=== PATIENT | male | born 1950 | race Caucasian/White ===

== ENCOUNTER 2017-09-16 15:51 | Inpatient (IN) | payer MEDICARE ==
[2017-09-16 16:53] LABS: #Eosinphils 0.1 thou/uL (0.0-0.7); #Monocytes 0.3 thou/uL (0.11-0.59); #Neutrophils 2.6 thou/uL (1.40-6.50); %Basophils 0.6 % (0.0-1.0); %Eosinophils 1.9 % (0.0-10.0); %Monocytes 8.5 % (0.0-10.0); Hematocrit 41.3 % (42.0-52.0); Mean Platelet Volume 6.7 fL (7.4-10.4); Red Blood Cell (RBC) Count 4.39 mill/uL (4.70-6.10)
[2017-09-16 17:16] LABS: ALT (SGPT) 30 U/L (8-55); AST (SGOT) 30 U/L (5-34); Alkaline Phosphatase 65 U/L (40-150); Anion Gap 9 mmol/L (10-20); BUN (Urea Nitrogen) 9 mg/dL (8.4-25.7); Bilirubin, Total 0.7 mg/dL (0.2-1.2); Calc. Creatinine Clearance 0 mL/min (70-130); Calcium 8.6 mg/dL (7.8-10.44); Carbon Dioxide 36 mmol/L (23-31); Chloride 82 mmol/L (98-107); Estimated GFR-MDRD Greater than 90; Globulin 2.4 g/dL (2.4-3.5); Protein, Total 5.9 g/dL (5.8-8.1)
[2017-09-16] MEDS ORDERED: Acetaminophen 650 MG Suppository PR PRN (18:47)
[2017-09-16] MEDS ORDERED: Ondansetron ODT 4 MG TAB SL PRN (19:43)
[2017-09-16] MEDS ORDERED: Ondansetron HCl/PF 4 MG/2 ML Vial IVP PRN (19:43)
--- NOTE | 2017-09-16 20:06 | HP ---
PRIMARY CARE PHYSICIAN: Sahil Blake. CHIEF COMPLAINT: Generalized weakness and weight loss. HISTORY OF PRESENT ILLNESS: Mr. Mcpherson is a pleasant 67-year-old gentleman who was seen at [facility] on 09/16/2017. He was sent to the emergency room by his primary care physician for low sodium level. He reports having right leg compartment syndrome, for which he underwent surgery in 04/2015. He was advised to undergo rehabilitation following the surgery, but he could not due to financial reasons. He reports progressively worsening weakness of the entire body. He reports losing muscle mass. He r eports that whenever he eats something, he gets a feeling of "high", which he cannot describe further . He has limited his oral intake of solids. He reports drinking a good amounts of water. He report s losing 40 pounds over the last 4 months. He also reports frequent falls, and he fell twice few mon ths ago. He was reportedly seen at an emergency room a few days ago. He had a sodium level of 122. He was st arted on meclizine and Protonix and was discharged home. He reports that the meclizine did not help him. He stopped taking it 4 days ago. He also reports occasional word finding difficulty. He was seen by his primary care physician earlier today. His sodium level was found to be 125. He w as sent to the emergency room. He reports cough that is productive of clear sputum, chronic. He also reports diarrhea over the last week, but he has been constipated over the last 2 days. He also reports dizziness and sensation of his head getting flushed. REVIEW OF SYSTEMS: The following complete review of systems was negative, unless otherwise mentioned in the HPI or below: CONSTITUTIONAL: Weight loss or gain, sense of well-being, ability to conduct usual activities, exerc ise tolerance. SKIN/BREAST: Rash, itching, changes in hair growth or loss, nail changes, breast lumps, tenderness, swelling, nipple discharge. EYES: Vision, double vision, tearing, blind spots, pain. ENT/MOUTH: Headaches (location, time of onset, duration, precipitating factors), vertigo, lightheade dness, injury. Vision, double vision, tearing, blind spots, pain, nose bleeding, colds, obstruction, discharge, dental difficulties, gingival bleeding, dentures, neck stiffness, pain, tenderness, masses in thyroid or other areas. CARDIOVASCULAR: Precordial pain, substernal distress, palpitations, syncope, dyspnea on exertion, or thopnea, nocturnal paroxysmal dyspnea, edema, cyanosis, hypertension, heart murmurs, varicosities, ph lebitis, claudication. RESPIRATORY: Pain, shortness of breath, wheezing, stridor, cough, hemoptysis, fever or night sweats GASTROINTESTINAL: Poor appetite, dysphagia, indigestion, abdominal pain, heartburn, eructation, naus ea, vomiting, hematemesis, jaundice, constipation, or diarrhea, abnormal stools (sobia-colored, tarry, bloody, greasy, foul smelling), flatulence, hemorrhoids, recent changes in bowel habits. GENITOURINARY: Urgency, frequency, dysuria, nocturia, hematuria, polyuria, oliguria, unusual (or darius nge in) color of urine, stones, hesitancy, change in size of stream, dribbling, acute retention or in continence, libido, potency. MUSCULOSKELETAL: Pain, swelling, redness or heat of muscles or joints, limitation, of motion, muscul ar weakness, atrophy, cramps. NEUROLOGIC/PSYCHIATRIC: Convulsions, paralyses, tremor, incoordination, paresthesias, difficulties w ith memory of speech, sensory or motor disturbances, or muscular coordination (ataxia, tremor), emoti onal problems, anxiety, depression, previous psychiatric care, unusual perceptions, hallucinations. ALLERGY/IMMUNOLOGIC: Skin rash, anemia, bleeding tendency, polydipsia, polyuria, intolerance to heat or cold. PAST MEDICAL HISTORY: Significant for hypertension, coronary artery disease, gastroesophageal reflux disease and Infante's tumor. PAST SURGICAL HISTORY: Significant for surgery for compartment syndrome on the right lower extremity , neck surgery, right knee surgery, left arm surgery for shrapnel and right rotator cuff surgery. PSYCHIATRIC HISTORY: Significant for anxiety. SOCIAL HISTORY: The patient is an ex-smoker. He denies alcohol use or recreational drug use. FAMILY HISTORY: Significant for malignancy in his father. ALLERGIES: No known drug allergies. CURRENT MEDICATIONS: Include pantoprazole 40 mg daily, Grampian p.r.n., tizanidine 4 mg daily, Xanax 0. 5 mg as needed, alprazolam 2 mg as needed, lisinopril 5 mg daily, meclizine p.r.n. and carvedilol 6.2 5 mg b.i.d. PHYSICAL EXAMINATION: GENERAL: Mr. Mcpherson is awake and alert, not in acute distress. He appears tired. VITAL SIGNS: Blood pressure is 136/74, pulse is 72, he is breathing at rate of 18, and saturating 95 % on room air. He is afebrile. EYES: No scleral icterus. No conjunctival pallor. ENT: Moist mucosal membranes, no oropharyngeal erythema or exudates. NECK: Supple, nontender, normal range of movement. Trachea is midline. RESPIRATORY: Accessory muscles of breathing are not active. Chest wall movements are symmetric bila terally. LUNGS: Clear to auscultation without wheeze, rhonchi or crepitations. CARDIOVASCULAR: S1 and S2 are heard, regular. Peripheral pulses palpable. No carotid bruit, no per icardial rub. ABDOMEN: Soft, nontender, bowel sounds heard, no hepatomegaly, no splenomegaly. NEUROLOGIC: Cranial nerves II-XII are intact. Deep tendon reflexes are 2+. MUSCULOSKELETAL: Power is 5/5 in all 4 extremities. Normal range of movement at all major extremity joints. SKIN: Scar over the left side of his neck. No rashes or subcutaneous nodules. LYMPHATIC: No cervical lymphadenopathy. PSYCHIATRIC: Normal mood and normal affect, patient is oriented to person, place, and time. LABORATORY DATA: Mr. Mcpherson's labs and investigations were reviewed. He has leukopenia with 4000 w joaquin cells, normal hemoglobin, normal platelet count, decreased sodium of 123, normal potassium, elev ated carbon dioxide level of 36, normal creatinine, normal magnesium, normal calcium and normal liver profile. ASSESSMENT AND PLAN: Mr. Flynn is a pleasant 67-year-old gentleman, who was seen at [facility] on 09/16/2017. His problem list includes: 1. Hyponatremia: Etiology unclear. We will admit him to the hospital, provide normal saline and in itiate workup. We will check urine and serum osmolality, TSH, and fasting lipid profile. 2. Weight loss. He has not had any recent imaging. I will check CT scan of the chest, abdomen, and pelvis to rule out an occult malignancy. We will also consult dietitian to help improve his oral in take. 3. Frequent falls: We will have his mobility assessed. 4. Dizziness: We will check orthostatic vitals. 5. Coronary artery disease: Appears to be stable. 6. Hypertension: Monitor vital signs, titrate antihypertensives as needed. 7. Gastroesophageal reflux disease: Continue proton-pump inhibitor. Many thanks for allowing me to participate in your patient's care. Please feel free to contact me wi th any questions or concerns. LEVEL OF RISK: Moderate. LEVEL OF COMPLEXITY: Moderate.
[2017-09-16] MEDS: HYDROcodone/Acetaminophen 5/325 mg Tablet PO SCH (20:50)
[2017-09-16] MEDS: Sodium Chloride 0.9% 1,000 ML IV SCH (20:50)
--- NOTE | 2017-09-16 21:40 | CT ---
CT OF THE CHEST WITH IV CONTRAST CT OF THE ABDOMEN AND PELVIS WITH IV CONTRAST 09/16/17 INDICATION: Weight loss, rule out malignancy with history of hyponatremia. FINDINGS: No suspicious pulmonary nodes evident. There are a few shotty appearing lymph nodes within the medias tinum. The largest seen within the left paratracheal region measuring 1 cm. There are mild vascular c alcification involving the aortic arch and coronary arteries. No axillary or hilar lymphadenopathy is evident. No focal hepatic lesion is evident. The spleen, pancreas and adrenal glands are normal appearing. No focal renal lesion is evident. No free fluid or enlarged lymph nodes are evident. There are moderate calcifications involving the abdominal aorta. There is a normal appendix in the right lower quadrant. The prostate is mildly enlarged measuring 5.4 cm. The bladder, rectum, and perirectal soft tissues ar e unremarkable. No free fluid or enlarged lymph nodes were seen within the pelvis. There are fat cont aining inguinal hernias bilaterally. There are multiple subchondral cyst-like abnormality involving the left acetabulum. This is likely de generative in nature. There is mild scattered degenerative and osteoarthritic change. No suspicious o steolytic or osteoblastic lesion is identified. IMPRESSION: 1. No acute abnormality. 2. Shotty appearing lymph nodes within the mediastinum and nonspecific. The largest measures jus t up to 1 cm. 3. Chronic findings as above. POS: [facility]
[2017-09-16] MEDS ORDERED: Carvedilol 6.25 MG TAB PO SCH (22:30)
[2017-09-16] MEDS ORDERED: ALPRAZolam 0.5 MG TAB PO SCH (22:30)
[2017-09-16] MEDS: tiZANidine HCl 4 MG TAB PO PRN (22:45)
[2017-09-17] MEDS: Sodium Chloride 0.9% 1,000 ML IV SCH ×2 (05:22→20:31)
[2017-09-17 06:01] LABS: #Eosinphils 0.1 thou/uL (0.0-0.7); #Lymphocytes 1.8 thou/uL (1.20-3.40); #Monocytes 0.5 thou/uL (0.11-0.59); #Neutrophils 2.6 thou/uL (1.40-6.50); %Basophils 0.6 % (0.0-1.0); %Eosinophils 2.2 % (0.0-10.0); %Lymphocytes 34.9 % (21.0-51.0); %Monocytes 10.4 % (0.0-10.0); Hematocrit 39.4 % (42.0-52.0); Mean Platelet Volume 6.5 fL (7.4-10.4); Red Blood Cell (RBC) Count 4.15 mill/uL (4.70-6.10); White Blood Cell (WBC) Count 5.1 thou/uL (4.8-10.8)
[2017-09-17 06:13] LABS: Anion Gap 8 mmol/L (10-20); BUN (Urea Nitrogen) 7 mg/dL (8.4-25.7); Calc. Creatinine Clearance 154 mL/min (70-130); Calcium 8.8 mg/dL (7.8-10.44); Carbon Dioxide 37 mmol/L (23-31); Chloride 85 mmol/L (98-107); Cholesterol 165 mg/dl (< 200 Desired); Estimated GFR-MDRD Greater than 90; LDL Cholesterol, Calculated 111 mg/dL
[2017-09-17] MEDS ORDERED: Carvedilol 6.25 MG TAB PO SCH (09:00)
[2017-09-17] MEDS: Enoxaparin Sodium 40 MG/0.4 ML SYRINGE SC SCH (09:43)
[2017-09-17] MEDS: Acetaminophen 325 MG TAB PO PRN ×2 (09:52→16:51)
--- NOTE | 2017-09-17 11:33 | PDOC.PN ---
- Subjective Encounter Start Date: 09/17/17 Encounter Start Time: 08:20 Pt seen for followup re: hyponatremia. Reports still having feeling of "high" after eating, not eating well. No chest pain. - Objective Resuscitation Status: Resuscitation Status FULL:Full Resuscitation MAR Reviewed: Yes Vital Signs & Weight: Vital Signs (12 hours) Temp Pulse Resp BP BP Pulse Ox 09/17/17 09:43 133/77 09/17/17 08:05 98.3 F 78 18 133/77 94 L 09/17/17 04:00 96.9 F L 64 18 167/77 H 18 L Weight Weight 187 lb 11.2 oz I&O: 09/16/17 09/17/17 09/18/17 06:59 06:59 06:59 Intake Total 1120 Balance 1120 Result Diagrams: 09/17/17 05:30 09/17/17 05:30 EKG Reviewed by me: Yes (Tele: NSR) Phys Exam - Physical Examination Constitutional: NAD HEENT: PERRLA, moist MMs, sclera anicteric, oral pharynx no lesions Neck: no nodes, no JVD, supple, full ROM Respiratory: no wheezing, no rales, no rhonchi, clear to auscultation bilateral Cardiovascular: RRR, no rub Gastrointestinal: soft, non-tender, no distention Musculoskeletal: pulses present Neurological: moves all 4 limbs Lymphatic: no nodes Psychiatric: normal affect, A&O x 3 Skin: no rash, normal turgor, cap refill <2 seconds Dx/Plan (1) Hyponatremia Code(s): E87.1 - HYPO-OSMOLALITY AND HYPONATREMIA Status: Acute (2) Generalized weakness Code(s): R53.1 - WEAKNESS Status: Acute (3) HTN (hypertension) Code(s): I10 - ESSENTIAL (PRIMARY) HYPERTENSION Status: Chronic (4) CAD (coronary artery disease) Code(s): I25.10 - ATHSCL HEART DISEASE OF [place] CORONARY ARTERY W/O ANG PCTRS Status: Chronic (5) Weight loss Status: Chronic - Plan PT/OT, out of bed/ambulate, DVT proph w/lovenox * . Sodium improving. Consult neurology on Tuesday re: ? myopathy. Monitor vital signs, titrate antihypertensives as needed. Consult GI re: weight loss. Review of Systems - Review of Systems Constitutional: Weakness, Malaise. negative: Fever, Chills, Sweats Respiratory: negative: Cough, Dry, Shortness of Breath, Hemoptysis, SOB with Excertion, Pleuritic Pain, Sputum, Wheezing Cardiovascular: negative: Chest Pain, Palpitations, Orthopnea, Paroxysmal Noc. Dyspnea, Edema, Light Headedness Gastrointestinal: Nausea. negative: Vomiting, Abdominal Pain, Diarrhea, Constipation, Melena, Hematochezia Genitourinary: negative: Dysuria, Frequency, Incontinence, Hematuria, Retention - Medications/Allergies Allergies/Adverse Reactions: Allergies Allergy/AdvReac Type Severity Reaction Status Date / Time No Known Drug Allergies Allergy Verified 09/16/17 17:47 Medications: Current Medications Acetaminophen (Tylenol) 650 mg PO Q4H PRN PRN Reason: Headache/Fever or Pain Last Admin: 09/17/17 09:52 Dose: 650 mg Acetaminophen (Tylenol) 650 mg [place] Q4H PRN PRN Reason: Headache/Fever or Pain Hydrocodone Bitart/Acetaminophen ([place] 5/325) 1 tab PO HS [facility] Last Admin: 09/16/17 20:50 Dose: 1 tab Alprazolam (Xanax) 0.5 mg PO HS [facility] Carvedilol (Coreg) 6.25 mg PO BID [facility] Last Admin: 09/17/17 09:43 Dose: 6.25 mg Enoxaparin Sodium (Lovenox) 40 mg SC 0900 [facility] Last Admin: 09/17/17 09:43 Dose: 40 mg Sodium Chloride (Normal Saline 0.9%) 1,000 mls @ 100 mls/hr IV .Q10H [facility] Last Admin: 09/17/17 05:22 Dose: 1,000 mls Sodium Chloride (Flush - Normal Saline) 10 ml IVF Q12HR [facility] Last Admin: 09/17/17 09:44 Dose: Not Given Sodium Chloride (Flush - Normal Saline) 10 ml IVF PRN PRN PRN Reason: Saline Flush Tizanidine HCl (Zanaflex) 4 mg PO QIDPRN PRN PRN Reason: Muscle Spasm Last Admin: 09/16/17 22:45 Dose: 4 mg
[2017-09-17 15:40] LABS: Potassium, Urine Less than 10.0 mmol/L; Sodium, Urine Less than 20 mmol/L (Not Available)
--- NOTE | 2017-09-17 17:04 | CON ---
DATE OF CONSULTATION: 09/17/2017 HISTORY OF PRESENT ILLNESS: The patient is a 67-year-old white male who was admitted because of hypo natremia. He complains of weight loss. He says he has lost approximately 60 pounds over the last se veral months. He denies any abdominal pain, any nausea, vomiting, or any diarrhea. He does have occ asional constipation. He reports that when he eats he feels a high feeling like he is dizzy and has trouble describing the situation. He reports that he feels like he has been taking drugs. If he king s not eat, he does not have this sensation. He reports he is eating less because he does not want to have this sensation. He has had some falls and some difficulty with memory lately. He has also bee n on chronic narcotics for back pain which has been decreased from 3 a day to 2 a day. He reports he had a colonoscopy approximately a year ago at [facility] in [place] and was told it was normal. PAST MEDICAL HISTORY: Significant for hypertension, coronary artery disease, and reflux. PAST SURGICAL HISTORY: Includes knee replacement surgery, rotator cuff surgery, compartment syndrome . SOCIAL HISTORY: Does not smoke or drink. MEDICATIONS: Include Coreg 6.25 mg p.o. b.i.d., Zanaflex 4 mg p.o. q.i.d. p.r.n., Zestril 5 mg p.o. q. day, hydrocodone 1 p.o. twice a day, albuterol q. 4 hours p.r.n., alprazolam 0.5 mg p.o. at bedtim e. ALLERGIES: No known allergies. FAMILY HISTORY: Negative for GI or liver disease. REVIEW OF SYSTEMS: Constitutional: Positive for weight loss. Negative for fever or chills. Eyes: Positive for blurred vision after meals. ENT: Negative for earaches. Cardiovascular: Negative for chest pain. Negative for palpitations. Pulmonary: No shortness of br eath, cough, or wheezing. Gastrointestinal: See above. Genitourinary: No hematuria or dysuria. M usculoskeletal: Positive for muscle loss and generalized weakness. Negative for joint pain. Skin: No rashes. Neurologic: No numbness or seizure activity. PHYSICAL EXAMINATION: VITAL SIGNS: Temperature is 98.3, pulse 75, respirations 20, blood pressure 145/79. HEENT: Unremarkable. NECK: Supple. CHEST: Clear. CARDIOVASCULAR: Regular rate and rhythm. ABDOMEN: Soft, nontender, without organomegaly or masses. RECTAL: Deferred. EXTREMITIES: Normal. LABORATORY DATA: Shows an admission hemoglobin of 14.0, white blood count is 4.0. Chemistries are s ignificant for sodium of 123, chloride 82, CO2 36, glucose 137. TSH of 1.52. Chest and abdomen and pelvic CT showed no acute abnormalities, shotty lymph nodes within the mediastinum, which are nonspec ific, largest being up to 1 cm. ASSESSMENT: 1. Weight loss - the patient reports a "high" feeling when eating. This could be a manifestation of dumping syndrome. Other possibilities would include narcotic effect or possibly secondary to early dementia. 2. Hyponatremia. RECOMMENDATIONS: 1. EGD in a.m.
[2017-09-17] MEDS: Carvedilol 6.25 MG TAB PO SCH (17:31)
[2017-09-18] MEDS: HYDROcodone/Acetaminophen 5/325 mg Tablet PO SCH (01:55)
[2017-09-18] MEDS: ALPRAZolam 0.5 MG TAB PO SCH (01:56)
[2017-09-18] MEDS: Sodium Chloride 0.9% 1,000 ML IV SCH ×2 (02:04→06:45)
[2017-09-18] MEDS: Carvedilol 6.25 MG TAB PO SCH ×2 (06:37→16:35)
[2017-09-18] MEDS: Enoxaparin Sodium 40 MG/0.4 ML SYRINGE SC SCH (08:16)
--- NOTE | 2017-09-18 15:12 | PDOC.PN ---
- Subjective Encounter Start Date: 09/18/17 Encounter Start Time: 15:06 Mr. Lynn was seen today in follow-up of weight loss and weakness. He says he is getting persistently weaker. He now says he has trouble with his hands, and can hardly pull open the tops of the pudding. - Objective Resuscitation Status: Resuscitation Status FULL:Full Resuscitation MAR Reviewed: Yes Vital Signs & Weight: Vital Signs (12 hours) Temp Pulse Resp BP BP Pulse Ox 09/18/17 11:50 97.6 F 70 20 158/76 H 96 09/18/17 08:00 97.6 F 76 18 152/76 H 97 09/18/17 06:37 144/78 H 09/18/17 04:00 98.1 F 73 18 157/76 H 96 Weight Admit Weight 187 lb 11.2 oz Weight 187 lb 11.2 oz I&O: 09/17/17 09/18/17 09/19/17 06:59 06:59 06:59 Intake Total 1120 2988 Output Total 3475 Balance 1120 -487 Result Diagrams: 09/17/17 05:30 09/17/17 05:30 Additional Labs: Accuchecks 09/18/17 05:36 POC Glucose 100 Phys Exam - Physical Examination HEENT: PERRLA Respiratory: no wheezing, no rales, no rhonchi, clear to auscultation bilateral Cardiovascular: RRR, no significant murmur, no rub Gastrointestinal: soft, non-tender, positive bowel sounds Musculoskeletal: no edema Dx/Plan (1) Generalized weakness Code(s): R53.1 - WEAKNESS Status: Acute (2) Hyponatremia Code(s): E87.1 - HYPO-OSMOLALITY AND HYPONATREMIA Status: Acute (3) CAD (coronary artery disease) Code(s): I25.10 - ATHSCL HEART DISEASE OF [place] CORONARY ARTERY W/O ANG PCTRS Status: Chronic (4) HTN (hypertension) Code(s): I10 - ESSENTIAL (PRIMARY) HYPERTENSION Status: Chronic (5) Weight loss Status: Chronic - Plan * Generalized weakness, and feeling " high disoriented after eating"- ? etiology - EGD was negative * Agree with Neurology evaluation * Will also check a CK- to screen for myopathy, and check a sed rate * HTN- blood pressure is slightly elevated- will monitor * Hyponatremia- lab work is consistent with volume depletion- improving with hydration, and will continue to monitor.
[2017-09-18] MEDS ORDERED: Propofol 200 MG/20 ML VIAL ONE (15:38)
[2017-09-19] MEDS: HYDROcodone/Acetaminophen 5/325 mg Tablet PO SCH ×2 (02:02→20:25)
[2017-09-19] MEDS: ALPRAZolam 0.5 MG TAB PO SCH ×2 (02:03→20:25)
[2017-09-19] MEDS ORDERED: hydrALAZINE 20 MG/ML VIAL SLOW IVP SCH (04:30)
[2017-09-19 05:53] LABS: Anion Gap 13 mmol/L (10-20); BUN (Urea Nitrogen) 6 mg/dL (8.4-25.7); Calc. Creatinine Clearance 151 mL/min (70-130); Calcium 9.2 mg/dL (7.8-10.44); Carbon Dioxide 34 mmol/L (23-31); Chloride 85 mmol/L (98-107); Estimated GFR-MDRD Greater than 90
[2017-09-19] MEDS: Carvedilol 6.25 MG TAB PO SCH ×2 (08:51→18:34)
[2017-09-19] MEDS: Enoxaparin Sodium 40 MG/0.4 ML SYRINGE SC SCH (08:52)
--- NOTE | 2017-09-19 12:37 | PRG ---
DATE OF SERVICE: 09/19/2017 SUBJECTIVE: The patient reports having difficulty. He says he is seeing flashes and having more christiano rologic problems. I discussed his dumping syndrome diet with him. He says he is scheduled to see a neurologist later today. OBJECTIVE: VITAL SIGNS: Temperature of 97.8, pulse 92, respiratory rate 22, blood pressure 139/72. GENERAL: He is a somewhat anxious white male in no acute distress. CHEST: Clear. CARDIOVASCULAR: Regular rate and rhythm. ABDOMEN: Soft, nontender, without organomegaly or masses. LABORATORY DATA: Shows a sodium 128, chloride 85, CO2 34, BUN 6, creatinine 0.58. ASSESSMENT: 1. Possible dumping syndrome. 2. Other neurologic complaints. 3. Weight loss. 4. Hyponatremia. RECOMMENDATIONS: 1. Continue with antidumping diet. 2. Dietary consultation. 3. Agree with Neurology input.
[2017-09-19] MEDS: Labetalol HCl 100 MG/20 ML VIAL SLOW IVP PRN (16:12)
[2017-09-19] MEDS: Sodium Chloride 0.9% 1,000 ML IV SCH (16:30)
--- NOTE | 2017-09-19 16:40 | PDOC.PN ---
- Subjective Encounter Start Date: 09/19/17 Encounter Start Time: 16:37 Mr. Solorzano was seen today in follow-up of feeling " high" after eating. He also now informs me that he has not slept since Tuesday. He feels nervous, and shaky. His hands are trembling. He says his entire face feels flushed, and feels like his eyes are going to pop out of the sockets. - Objective Resuscitation Status: Resuscitation Status FULL:Full Resuscitation MAR Reviewed: Yes Vital Signs & Weight: Vital Signs (12 hours) Temp Pulse Resp BP BP BP BP 09/19/17 16:12 88 09/19/17 12:00 98.1 F 88 22 H 156/45 H 09/19/17 08:51 139/72 09/19/17 08:00 97.8 F 92 22 H 09/19/17 07:44 97.8 F 92 22 H 139/72 09/19/17 05:34 86 171/72 H 09/19/17 05:00 163/80 H 174/83 H 09/19/17 04:47 88 190/88 H BP Pulse Ox 09/19/17 16:12 09/19/17 12:00 96 09/19/17 08:51 09/19/17 08:00 09/19/17 07:44 96 09/19/17 05:34 09/19/17 05:00 171/81 H 09/19/17 04:47 Weight Admit Weight 187 lb 11.2 oz Weight 185 lb 6.4 oz I&O: 09/18/17 09/19/17 09/20/17 06:59 06:59 06:59 Intake Total 2988 2400 Output Total 3475 2750 Balance -487 -350 Result Diagrams: 09/17/17 05:30 09/19/17 05:03 Additional Labs: Accuchecks 09/19/17 09/19/17 11:48 05:07 POC Glucose 111 H 108 Phys Exam - Physical Examination HEENT: PERRLA Respiratory: no wheezing, no rales, no rhonchi, clear to auscultation bilateral Cardiovascular: RRR, no significant murmur, no rub Gastrointestinal: soft, non-tender, positive bowel sounds Musculoskeletal: no edema Dx/Plan (1) Generalized weakness Code(s): R53.1 - WEAKNESS Status: Acute (2) Hyponatremia Code(s): E87.1 - HYPO-OSMOLALITY AND HYPONATREMIA Status: Acute (3) CAD (coronary artery disease) Code(s): I25.10 - ATHSCL HEART DISEASE OF [place] CORONARY ARTERY W/O ANG PCTRS Status: Chronic (4) HTN (hypertension) Code(s): I10 - ESSENTIAL (PRIMARY) HYPERTENSION Status: Chronic (5) Weight loss Status: Chronic - Plan * Flushing feeling- ? etiology- he does appear very anxious, and he has a resting tremor. His blood pressure was also noted to be elevated- will screen him for Pheochromocytoma, and Carcinoid secreting tumor with 24 hour urine for metanephrines, 5-HIAA and [place] * The generalized weakness and muscle wasting- not sure if this is related- CK was only slightly elevated, and his ESR was normal- Await further recommendations from Neurology * HTN- will add PRN blood pressure medication, and consider Clonidine after 24hour urine collection * Insomnia- add Restoril .
[2017-09-19] MEDS ORDERED: Lorazepam 0.5 MG TAB PO PRN (16:45)
[2017-09-19] MEDS: Temazepam 15 MG CAP PO PRN (23:04)
--- NOTE | 2017-09-20 03:59 | CON ---
DATE OF CONSULTATION: 09/19/2017 REFERRING PROVIDER: Dr. Sarkis Hutchins. REASON FOR CONSULTATION: Possible myopathy. HISTORY OF PRESENT ILLNESS: Mr. Flynn is a pleasant 67-year-old male who has been consult ed for evaluation of possible myopathy. The patient reports that he had developed compartment syndro me in 04/2016. After the surgery, he had undergone exercise program at [facility] as he was not able to afford physical therapy evaluation due to financial issues. He states that he was recovering well and developing his strength and muscles back over the course of several months; however, raul ames in March of this year, he started noticing decline in his strength. He started noticing increasing muscle mass loss and weight loss. He also noticed increasing weakness in both upper and lower extre mities. He was noticing more weakness in lower extremities and upper extremities. He noted that he was having difficulty with walking and balance. He states that he was also having increasing mid and lower back pain. The pain was nonradiating. He also complained of noticing weakness in both hands. He states that prior to coming into the hospital, he was able to pick things up with his hand with h is two fingers; however, now he is not able to do that with his right hand. He is also not able to o ppose his thumb on his right side. He also complains of having noted increasing difficulty with swal lowing. He states that prior to coming to the hospital, he was able to swallow with some difficulty, but now he is having hard time swallowing. He was also able to cough, but now he is not able to do that. This all has been going on since he is being admitted to the hospital. He denies any headache or vision changes, diplopia, numbness or tingling on his face. He does complain of having numbness and tingling in both lower extremities intermittently in different places. When I asked specifically where he is having tingling sensation, he was not able to point to one location. PAST MEDICAL HISTORY: Significant for compartment syndrome, hypertension, coronary artery disease, G ERD. PAST SURGICAL HISTORY: Significant for surgery for compartment syndrome on the right lower extremity , neck surgery, right knee surgery, left arm surgery, right rotator cuff surgery, left shoulder surge ry. PSYCHIATRIC HISTORY: Significant for anxiety. SOCIAL HISTORY: He is an ex-smoker. He denies alcohol use or illicit drug use. FAMILY HISTORY: Significant for cancer in his father. CURRENT MEDICATIONS: Please review MAR. ALLERGIES: No known drug allergies. REVIEW OF SYSTEMS: As mentioned in the HPI, otherwise negative. PHYSICAL EXAMINATION: VITAL SIGNS: Blood pressure 169/88, pulse of 79, temperature of 98.0, respirations of 16, O2 sats of 95% on room air. GENERAL: Well-developed, well-nourished male in no apparent distress. RESPIRATORY: Clear to auscultation bilaterally. CARDIOVASCULAR: Regular rate and rhythm. NEUROLOGIC: Mental status: The patient is awake, alert, oriented x3. Speech and language: Fluent speech. Cranial nerves: Pupils are 3 mm and reactive. Visual valencia are intact. Extraocular muscl es are intact. No nystagmus is noted. Face is symmetric. Tongue and uvula are midline. Motor exam showed normal tone and bulk with a 5/5 strength in both upper extremities except shoulder abduction 4/5 bilaterally. Strength in both lower extremities showed a 3 to 4/5 hip flexion bilaterally. Knee flexion is 4/5, knee extension is 4/5. Hip abduction and hip adduction is 5/5. He has a right foot drop that is since his compartment syndrome. Sensory: Sensation appears intact. Deep tendon refle xes 2+ reflexes in both upper and lower extremities. Babinski: Plantar responses flexion bilaterall y. Coordination intact to [id number] tapping bilaterally. LABORATORY DATA: Reviewed, which included CBC, sed rate, CMP, CPK, TSH, lipid profile, magnesium and urine osmolality and urine sodium, urine potassium and urine creatinine, which is significant for he moglobin 13.1, hematocrit of 39.4. Sodium 128, CPK of 274. Otherwise, negative. IMPRESSION: 1. Generalized weakness. 2. Chronic neck and back pain. Mr. Flynn is a pleasant 67-year-old male presented with the 4 to 5-month history of gradua l weakness in both upper and lower extremities as well as increasing weight loss and muscle mass loss . At this time, I would recommend obtaining MRI, C-spine, T-spine, and L-spine without contrast for further evaluation. I will also obtain aldolase, myoglobin, and hepatitis panel. If the above studi es are normal, he will need an outpatient EMG with possible muscle biopsy. Thank you for your consultation.
[2017-09-20] MEDS: Sodium Chloride 0.9% 1,000 ML IV SCH ×2 (05:40→20:23)
[2017-09-20 06:25] LABS: Anion Gap 11 mmol/L (10-20); BUN (Urea Nitrogen) 6 mg/dL (8.4-25.7); Calc. Creatinine Clearance 163 mL/min (70-130); Calcium 8.8 mg/dL (7.8-10.44); Carbon Dioxide 35 mmol/L (23-31); Chloride 83 mmol/L (98-107); Estimated GFR-MDRD Greater than 90
--- NOTE | 2017-09-20 09:23 | MRI ---
MRI LUMBAR SPINE NONCONTRAST ENHANCED: Date: 09-20-17 History: 67-year-old with history of weakness for three months. FINDINGS: T12-L1: Mild facet hypertrophy seen. The central canal and neural foramen are patent. L1-2: There is some disc desiccation seen. Bilateral facet hypertrophy is seen. The central canal and neural foramen are patent. L2-3: Bilateral facet hypertrophy is seen. The central canal and neural foramen are patent. L3-4: Disc desiccation is seen. There is a subtle broad based disc bulge. Bilateral facet and ligamen caridad flavum hypertrophy is seen. Mild but not significant degree of central and lateral recess stenosi s is seen. L4-5: Disc desiccation is seen. There is broad based central disc protrusion. Bilateral facet and lig amentum flavum hypertrophy is seen. This results in mild to moderate central and lateral recess steno sis. Moderate bilateral neural foraminal narrowing is seen. L5-S1: Disc desiccation is seen. Bilateral facet hypertrophy is seen. There is a broad based disc bul ge. No significant degree of central stenosis is seen. There is moderate left and mild right sided ne ural foraminal narrowing. IMPRESSION: Broad based disc bulge at L2-3, L4-5 and L5-S1. No significant degree of central stenosis is seen. So me neural foraminal narrowing seen as described above. This is, however, not of critical degree. POS: [facility]
--- NOTE | 2017-09-20 09:25 | MRI ---
MRI THORACIC SPINE NONCONTRAST: Date: 09/20/17 HISTORY: 67-year-old male with bilateral upper extremity weakness. COMPARISON: None. FINDINGS: The thoracic vertebral body heights are maintained. There is a hemangioma (venous malformation of bon e) at the left posterior superior aspect of the T12 vertebral body. There are other smaller foci of T 1 hyperintensity, including T7 and T9 vertebral bodies, which probably also represent small hemangiom as. The bone marrow signal is diffusely heterogeneous. This is nonspecific, but this probably represe nts senescent marrow changes in this case. There is multilevel, predominantly mild discogenic degener ative changes throughout the thoracic spine. There is minimal dilation of the central canal of the sp inal cord from the mid T5 level to the mid T6 level, with a diameter of approximately 1.5 mm. Otherwi se, there is no intramedullary signal abnormality elsewhere. There is no bony central spinal canal st enosis at any level. However, the posterior epidural fat pad is large, surrounding the thecal sac by approximately 180-270 degrees, throughout much of the thoracic spine, beginning at approximately the T2 level, down to approximately the T9 level. The posterior epidural fat pad is thickest, and causes significant thecal sac stenosis, from approximately T3-4 to the T8 levels (moderate to severe thecal sac stenosis), but without indentation of the thoracic spinal cord. There is no high grade neural for aminal stenosis identified at any level. No major pathology of the perivertebral spaces identified. IMPRESSION: 1. Although there is no bony central spinal canal stenosis, there is moderate-severe thecal sac sten osis throughout much of the thoracic spine due to large posterior epidural fat pad. The clinical sign ificance of this is uncertain. 2. 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 3. Mild thoracic spondylosis. POS: [facility]
[2017-09-20] MEDS: Carvedilol 6.25 MG TAB PO SCH ×2 (09:29→16:20)
[2017-09-20] MEDS: Enoxaparin Sodium 40 MG/0.4 ML SYRINGE SC SCH (09:29)
--- NOTE | 2017-09-20 09:50 | MRI ---
MRI CERVICAL SPINE NONCONTRAST: Date: 09/20/17 HISTORY: 67-year-old male with bilateral upper extremity weakness. COMPARISON: None. FINDINGS: There is no Chiari I malformation. The cervical spine cord is normal in size and signal. There is no syringohydromyelia. The vertebral body heights are maintained. Alignment is normal. Normal lordosis i s maintained. There are no high grade degenerative facet changes at any level. There is minimal disc space narrowing at C4-5. No high grade disc space narrowing at any level. Vertebral body heights are maintained. The bone marrow signal is normal. C1-2: Essentially normal. C2-3: No high grade central stenosis or neural foraminal stenosis. C3-4: No high grade central stenosis or neural foraminal stenosis. C4-5: Mild ligamentum flavum thickening and minimal central disc-osteophyte complex exacerbate a spinal can al that is developmentally small in caliber due to congenitally short pedicles, resulting in moderate central spinal canal stenosis. No significant neural foraminal stenosis. C5-6: Ligamentum flavum thickening and minimal central and bilateral paracentral disc-osteophyte complex ex acerbate a spinal canal that is diffusely small in caliber due to congenitally short pedicles, result ing in moderate to severe central spinal canal stenosis. Mild right neural foraminal stenosis. Mild t o moderate left neural foraminal stenosis. C6-7: Mild ligamentum flavum thickening. Mild to moderate central spinal canal stenosis. No significant christiano ral foraminal stenosis. C7-T1: Essentially normal. IMPRESSION: 1. Minimal/mild cervical spondylosis. 2. Moderate to severe central spinal canal stenosis at C5-6 due to mild degenerative changes superim posed on a developmentally small caliber spinal canal. 3. Moderate central spinal canal stenosis at C4-5. 4. No high grade neural foraminal stenosis at any level. POS: [facility]
--- NOTE | 2017-09-20 12:55 | PRG ---
DATE OF SERVICE: 09/20/2017 SUBJECTIVE: The patient is really without change, has no GI complaints at present time. OBJECTIVE: VITAL SIGNS: Temperature 97.5, pulse 78, respiratory rate 16, blood pressure 136/75. CHEST: Clear. CARDIOVASCULAR: Regular rate and rhythm. ABDOMEN: Benign. The patient has been by Neurology and underwent thoracic, lumbar and cervical spine evaluation and du odenal biopsy was unremarkable. LABORATORY DATA: Shows CK of 274. Sodium today of 125. ASSESSMENT: 1. Generalized weakness and abnormal sensation with eating, of unknown etiology. 2. Hyponatremia. RECOMMENDATIONS: 1. Continue antidumping diet. 2. The patient okay to follow up with me as an outpatient. We will continue workup. 3. We will sign off.
--- NOTE | 2017-09-20 12:58 | PDOC.PN ---
- Subjective Encounter Start Date: 09/20/17 Encounter Start Time: 12:56 Mr. Gilman was seen today in follow-up of severe muscle weakness, and post prandial symptoms. He says he feels a bit better today. He slept at least 7 hours last night. He still feels very weak, and says he is loosing the ability to cough, and feels like his lungs are being restricted. - Objective Resuscitation Status: Resuscitation Status FULL:Full Resuscitation MAR Reviewed: Yes Vital Signs & Weight: Vital Signs (12 hours) Temp Pulse Resp BP BP BP Pulse Ox 09/20/17 11:16 97.5 F L 78 16 136/75 95 09/20/17 09:30 152/72 H 09/20/17 09:29 169/72 H 09/20/17 08:00 97.8 F 77 18 09/20/17 04:00 97.8 F 77 18 171/94 H 94 L Weight Admit Weight 187 lb 11.2 oz Weight 185 lb 6.4 oz I&O: 09/19/17 09/20/17 09/21/17 06:59 06:59 06:59 Intake Total 2400 Output Total 2750 Balance -350 Result Diagrams: 09/17/17 05:30 09/20/17 04:49 Additional Labs: Accuchecks 09/20/17 09/20/17 09/19/17 11:14 05:37 20:12 POC Glucose 99 103 107 09/19/17 15:52 POC Glucose 123 H Phys Exam - Physical Examination HEENT: PERRLA Respiratory: no wheezing, no rales, no rhonchi, clear to auscultation bilateral Cardiovascular: RRR, no significant murmur Gastrointestinal: soft, non-tender, positive bowel sounds Musculoskeletal: no edema Dx/Plan (1) Generalized weakness Code(s): R53.1 - WEAKNESS Status: Acute (2) Hyponatremia Code(s): E87.1 - HYPO-OSMOLALITY AND HYPONATREMIA Status: Acute (3) CAD (coronary artery disease) Code(s): I25.10 - ATHSCL HEART DISEASE OF [place] CORONARY ARTERY W/O ANG PCTRS Status: Chronic (4) HTN (hypertension) Code(s): I10 - ESSENTIAL (PRIMARY) HYPERTENSION Status: Chronic (5) Weight loss Status: Chronic - Plan * Generalized muscle weakness- MRI results noted, and likely the findings noted do not explain his symptoms * Further work-up as outlined by Dr. Santizo is still pending * Hyponatremia- his serum sodium level has stalled around 125- will consult Nephrology to help with diagnosis and management * HTN- blood pressure is slightly improved * Work-up for Pheo, and carcinoid are in progress. * Will consult PT/OT
[2017-09-20] MEDS: tiZANidine HCl 4 MG TAB PO PRN (19:40)
[2017-09-20] MEDS: HYDROcodone/Acetaminophen 5/325 mg Tablet PO SCH (20:09)
[2017-09-20] MEDS: Labetalol HCl 100 MG/20 ML VIAL SLOW IVP PRN (20:09)
[2017-09-20] MEDS: ALPRAZolam 0.5 MG TAB PO SCH (21:50)
--- NOTE | 2017-09-20 22:38 | CON ---
DATE OF CONSULTATION: 09/20/2017 CONSULTING PHYSICIAN: Alejo Molina M.D. REQUESTING PHYSICIAN: Dr. Zimmer REASON FOR CONSULTATION: Hyponatremia. IMPRESSION: 1. Hyponatremia. This is of unknown etiology, but going by the recent urine chemistry, one would th ink this to be more of hypovolemic hyponatremia, but this urine chemistry will be repeated to substan tiate or rule out this type of hyponatremia. 2. Generalized weakness with unstable gait which cannot coin the setting of hyponatremia. PLAN: 1. Urine chemistry especially urine sodium and urine osmolarity to be able to classify this hyponatr emia and initiate appropriate treatment. 2. Meanwhile awaiting this urine chemistry, will recommend continuing high protein based diet. 3. Continue gentle rehydration until the urine chemistry is evaluated. HISTORY OF PRESENT ILLNESS: History is that of a 67-year-old gentleman who presented here with compl aint of generalized weakness, weight loss, inability to walk and a feeling of hives especially when h e eats when he exerts himself. Patient claimed to have been losing lot of muscle mass and over the c ourse of 4 months claimed to have lost about 40 pounds. The patient is a remote tobacco user which q uit about the year 1999, presented here with a sodium level of 123, which improved to 125 and never s eems to go further than that. PAST MEDICAL HISTORY: Significant for hypertension, coronary artery disease, reflux disease . SOCIAL HISTORY: Ex-tobacco user, alcohol quit about 1989. Denies illicit drug use. FAMILY HISTORY: None significantly related to the presenting illness. ALLERGIES: No known drug allergies. MEDICATIONS: Reviewed and as documented on [employer]. REVIEW OF SYSTEMS: As documented in the body of the history. All the other systems were reviewed an d were found not to be significantly related to the presenting illness. LABORATORY INVESTIGATION: Significant for sodium of 125. PHYSICAL EXAMINATION: GENERAL: The patient was found not to be in any obvious distress, noted with the following vital sig ns. VITAL SIGNS: Afebrile with temperature 97.5, pulse 78, respiratory rate of 16, blood pressure 136/75 , O2 sat 95%. HEENT: Unremarkable with moist oral mucosa. Neck is supple. No conjunctival injection or icterus. CARDIOVASCULAR SYSTEM: First and second heart sounds were heard. RESPIRATORY SYSTEM: Clear to auscultation. DIGESTIVE SYSTEM: Revealed a benign abdomen with positive bowel sounds. EXTREMITIES: No peripheral edema. SKIN: No new gross rash. LYMPHATICS: No peripheral lymphadenopathy. SUMMARY: This is a 67-year-old gentleman who presented here with generalized weakness and progressiv e weight loss, noted with persistent hyponatremia. Thank you for this consultation. We will follow with you.
[2017-09-20] MEDS: Temazepam 15 MG CAP PO PRN (23:41)
[2017-09-20] MEDS: Acetaminophen 325 MG TAB PO PRN (23:43)
[2017-09-21 03:13] LABS: Myoglobin, Serum 235 ng/mL (28-72)
[2017-09-21 06:13] LABS: Anion Gap 9 mmol/L (10-20); BUN (Urea Nitrogen) 8 mg/dL (8.4-25.7); Calc. Creatinine Clearance 166 mL/min (70-130); Calcium 8.5 mg/dL (7.8-10.44); Carbon Dioxide 34 mmol/L (23-31); Chloride 83 mmol/L (98-107); Estimated GFR-MDRD Greater than 90
[2017-09-21] MEDS: Sodium Chloride 0.9% 1,000 ML IV SCH (08:30)
[2017-09-21] MEDS: Carvedilol 6.25 MG TAB PO SCH ×2 (08:52→16:42)
[2017-09-21] MEDS: Enoxaparin Sodium 40 MG/0.4 ML SYRINGE SC SCH (08:54)
[2017-09-21] MEDS: tiZANidine HCl 4 MG TAB PO PRN (09:00)
[2017-09-21] MEDS ORDERED: Conivaptan 20 MG in Premix Bag 1 BAG IVPB SCH ×4 (09:15→12:00)
--- NOTE | 2017-09-21 09:30 | PRG ---
DATE OF SERVICE: 09/21/2017 The patient was seen and examined today, seems to be more shaky today. PHYSICAL EXAMINATION: VITAL SIGNS: Afebrile with temperature 97.9, pulse 68, respiratory rate 16, O2 sat 95% with blood pr essure 184/95. HEENT: Unremarkable. CARDIOVASCULAR: First and second heart sounds were heard. RESPIRATORY: Clear to auscultation. DIGESTIVE SYSTEM: Abdomen with positive bowel sounds. EXTREMITIES: No peripheral edema. SKIN: No new gross rash. LYMPHATICS: No peripheral lymphadenopathy. LABORATORY: Serum sodium of 122. Urine chemistry revealed urine sodium of 75 and urine osmolarity o f 350. IMPRESSION: 1. Hyponatremia. 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 2. Weight loss with hyponatremia, still very concerning for occult malignancy. PLAN: 1. Discontinue IV fluid. 2. Initiate Vaprisol. 3. Serial sodium check every 6 hours and make adjustments accordingly. 4. Continue with high protein diet. 5. Further management to be dependent on the clinical course.
--- NOTE | 2017-09-21 13:48 | PRG ---
DATE OF SERVICE: 09/21/2017 SUBJECTIVE: The patient is feeling somewhat better. He slept last night. He is eating well with mi nimal symptoms. OBJECTIVE: VITAL SIGNS: Temperature is 98.2, pulse 67, respiratory rate 16 and blood pressure 155/80. CHEST: Clear. CARDIOVASCULAR: Regular rate and rhythm. ABDOMEN: Benign. LABORATORY DATA: Shows a sodium of 122, chloride 83 and CO2 of 34. ASSESSMENT: 1. Hyponatremia. 2. Possible dumping syndrome. 3. Weight loss of unknown etiology. RECOMMENDATIONS: 1. Continue to correct the electrolytes. 2. The patient can follow up with me in the outpatient setting to follow weight and to follow his sy mptoms and follow his adherence with antidumping diet. 3. We will sign off.
--- NOTE | 2017-09-21 15:55 | PDOC.PN ---
- Subjective Encounter Start Date: 09/21/17 Encounter Start Time: 15:54 Mr. Prieto was seen today in follow-up of generalized weakness. He does not have any new complaints other than he feels drowsy. - Objective Resuscitation Status: Resuscitation Status FULL:Full Resuscitation MAR Reviewed: Yes Vital Signs & Weight: Vital Signs (12 hours) Temp Pulse Resp BP BP BP BP 09/21/17 11:40 98.2 F 67 16 155/80 H 09/21/17 08:52 184/95 H 09/21/17 08:00 97.9 F 68 16 09/21/17 07:33 97.9 F 68 16 184/78 H 09/21/17 06:33 155/88 H 160/87 H 09/21/17 05:00 97.8 F 74 20 BP Pulse Ox 09/21/17 11:40 94 L 09/21/17 08:52 09/21/17 08:00 95 09/21/17 07:33 95 09/21/17 06:33 172/88 H 09/21/17 05:00 171/83 H 95 Weight Admit Weight 187 lb 11.2 oz Weight 185 lb 6.4 oz I&O: 09/20/17 09/21/17 09/22/17 06:59 06:59 06:59 Intake Total 500 960 Output Total 1025 Balance -525 960 Result Diagrams: 09/17/17 05:30 09/21/17 15:17 Additional Labs: Accuchecks 09/21/17 09/21/17 09/20/17 11:09 05:04 19:52 POC Glucose 110 106 109 09/20/17 16:37 POC Glucose 100 Phys Exam - Physical Examination HEENT: PERRLA Respiratory: no wheezing, no rales, no rhonchi, clear to auscultation bilateral Cardiovascular: RRR, no significant murmur Gastrointestinal: soft, non-tender, positive bowel sounds Musculoskeletal: no edema Dx/Plan (1) Generalized weakness Code(s): R53.1 - WEAKNESS Status: Acute (2) Hyponatremia Code(s): E87.1 - HYPO-OSMOLALITY AND HYPONATREMIA Status: Acute (3) CAD (coronary artery disease) Code(s): I25.10 - ATHSCL HEART DISEASE OF [place] CORONARY ARTERY W/O ANG PCTRS Status: Chronic (4) HTN (hypertension) Code(s): I10 - ESSENTIAL (PRIMARY) HYPERTENSION Status: Chronic (5) Weight loss Status: Chronic - Plan * Generalized weakness- ? etiology- related to hyponatremia?- discussed with Dr. Santizo- awaiting the results of the remaining lab tests. * Elevated CK and Myoglobin- ? significance * Hyponatremia- Nephrology input appreciated- hyponatremia behaving like SIADH- patient is undergoing a trial of Conivaptan * HTN- blood pressure is elevated- will add Amlodipine * Screening for Pheo and Carcinoid is pending, and may need to be followed up as outpatient * Continue PT/OT * Weight loss- ? etiology
[2017-09-21] MEDS: ALPRAZolam 0.5 MG TAB PO SCH (20:25)
[2017-09-21] MEDS: Temazepam 15 MG CAP PO PRN (23:08)
[2017-09-21] MEDS: HYDROcodone/Acetaminophen 5/325 mg Tablet PO SCH (23:11)
[2017-09-22] MEDS: Labetalol HCl 100 MG/20 ML VIAL SLOW IVP PRN (03:51)
[2017-09-22] MEDS: Amlodipine 5 MG TAB PO SCH (09:25)
[2017-09-22] MEDS: Carvedilol 6.25 MG TAB PO SCH ×2 (09:25→21:00)
[2017-09-22] MEDS: Enoxaparin Sodium 40 MG/0.4 ML SYRINGE SC SCH (09:27)
[2017-09-22] MEDS: Acetaminophen 325 MG TAB PO PRN ×2 (09:31→14:22)
--- NOTE | 2017-09-22 11:15 | PQF ---
CLINICAL DOCUMENTATION IMPROVEMENT CLARIFICATION FORM: ICD-10 Updated PLEASE DO AN ADDENDUM TO THE PROGRESS NOTE WITH ANY DOCUMENTATION UPDATES OR ADDITIONS AND CARRY THROUGH TO DC SUMMARY. THANK YOU. Date: 09/22/17 ATTN: DR. CEVALLOS Please exercise your independent, professional judgment in responding to the clarification form. Clinical indicators are provided on the bottom of this form for your review Please check appropriate box(s): [ ] Protein Calorie Malnutrition: [ ] Mild [ ] Moderate [ ] Severe [ ] Other Malnutrition (please specify) __ [ X] Underweight without malnutrition [ ] Cachexia [ ] Other diagnosis [ ] Unable to determine In addition, please specify: Present on Admission (POA): [ X] Yes [ ] No [ ] Unable to determine CLINICAL INDICATORS - SIGNS / SYMPTOMS / LABS PROGRESS NOTE 09/18: "MR. CHILD WAS SEEN TODAY IN FOLLOW-UP OF WEIGHT LOSS AND WEAKNESS. HE SAYS HE IS GETTING PERSISTENTLY WEAKER. HE NOW SAYS HE HAS TROUBLE WITH HIS HANDS, AND CAN HARDLY PULL OPEN THE TOPS OF THE PUDDING." DIETARY NOTE 09/17: "PATIENT REPORTS WEIGHING 252 LBS 3 MONTHS AGO, 'HAS LOST ALL HIS MUSCLE.' " "PER DOCUMENTATION, PATIENT REPORTED A 40 LBS WEIGHT LOSS IN 4 MONTHS TO MD AND A 60 LBS WEIGHT LOSS IN 6 MONTHS TO RN." BMI 23.8 RISKS: WEIGHT LOSS OF UNKNOWN ETIOLOGY (PER PROGRESS NOTE 09/21) POSSIBLE DUMPING SYNDROME (PER PROGRESS NOTE 09/21) HYPONATREMIA TREATMENT: DIETARY CONSULT GI CONSULT NUTRITIONAL SUPPLEMENTS HIGH PROTEIN DIET (This form is maintained as a part of the permanent medical record) 2014 [employer]. All Rights Reserved [email or web address] Office: [phone] [facility]
--- NOTE | 2017-09-22 11:23 | PDOC.PN ---
- Subjective Encounter Start Date: 09/22/17 Encounter Start Time: 11:20 Mr. Mcpherson was seen today in follow-up of generalized weakness and hyponatremia. He is complaing of feeling very weak today, and off balance. He also began having a headache after I arrived in his room. - Objective Resuscitation Status: Resuscitation Status FULL:Full Resuscitation MAR Reviewed: Yes Vital Signs & Weight: Vital Signs (12 hours) Temp Pulse Resp BP BP BP Pulse Ox 09/22/17 09:25 92 124/78 09/22/17 08:34 98.2 F 72 18 159/83 H 95 09/22/17 08:00 98.2 F 92 20 124/78 94 L 09/22/17 06:00 156/81 H 09/22/17 04:00 97.3 F L 75 20 156/81 H 95 09/22/17 03:51 91 190/80 H 09/22/17 03:36 91 190/80 H 09/22/17 00:00 98.0 F 84 20 186/74 H 91 L Weight Admit Weight 187 lb 11.2 oz Weight 185 lb 6.4 oz I&O: 09/21/17 09/22/17 09/23/17 06:59 06:59 06:59 Intake Total 500 2253 Output Total 1025 6150 Balance -525 -2709 Result Diagrams: 09/17/17 05:30 09/22/17 05:11 Additional Labs: Accuchecks 09/22/17 09/21/17 09/21/17 05:03 19:48 16:51 POC Glucose 98 147 H 99 09/21/17 11:09 POC Glucose 110 Phys Exam - Physical Examination HEENT: PERRLA Respiratory: no wheezing, no rales, no rhonchi, clear to auscultation bilateral Cardiovascular: RRR, no significant murmur Gastrointestinal: soft, non-tender, positive bowel sounds Musculoskeletal: no edema Dx/Plan (1) Generalized weakness Code(s): R53.1 - WEAKNESS Status: Acute (2) Hyponatremia Code(s): E87.1 - HYPO-OSMOLALITY AND HYPONATREMIA Status: Acute (3) CAD (coronary artery disease) Code(s): I25.10 - ATHSCL HEART DISEASE OF [place] CORONARY ARTERY W/O ANG PCTRS Status: Chronic (4) HTN (hypertension) Code(s): I10 - ESSENTIAL (PRIMARY) HYPERTENSION Status: Chronic (5) Weight loss Status: Chronic - Plan * Generalized weakness- ? etiology- continue PT/OT * Hyponatremia- patient's serum sodium level is better after Conivaptan * HTN- blood pressure was much better this morning * Will re-assess patient in the morning, and will need to begin discharge planning. If he is able to manage at home, ambulating ect. then he will be discharged and have Outpatient Neurology follow-up for EMG, and muscle biopsy. If he is too weak than will consider transfer to [facility] for Inpatient Neurology evaluation as discussed with Dr. Santizo .
[2017-09-22 13:47] VITALS: BMI 23.8
[2017-09-22 14:22] LABS: Hep B Surface AG-Rflx Sendout Negative (Negative); Hepatitis B Core Total Negative (Negative); Hepatitis B Surface AB-Sendout Reactive (.); Hepatitis B little e Antibody Negative (Negative); Hepatitis B little e Antigen Negative (Negative)
[2017-09-22] MEDS: ALPRAZolam 0.5 MG TAB PO SCH (21:00)
--- NOTE | 2017-09-22 21:14 | PRG ---
DATE OF SERVICE: 09/22/2017 LABORATORY INVESTIGATION: Showed a sodium that has gone up to 131. IMPRESSION: 1. Hyponatremia in the context of syndrome of inappropriate antidiuretic hormone responding to _ . 2. Weight loss, query cause. PLAN: 1. The patient to continue with current medications. 2. Fluid restriction. 3. regular diet recommended. 4. Further management will be dependent on the clinical course. It is somewhat concerning the weigh t loss and hyponatremia for occult malignancy.
[2017-09-22] MEDS: HYDROcodone/Acetaminophen 5/325 mg Tablet PO SCH (22:40)
[2017-09-22] MEDS: Temazepam 15 MG CAP PO PRN (23:30)
[2017-09-23 04:18] LABS: Aldolase 7.3 U/L (3.3-10.3)
[2017-09-23] MEDS: Carvedilol 6.25 MG TAB PO SCH ×2 (08:47→16:13)
[2017-09-23] MEDS: Amlodipine 5 MG TAB PO SCH (08:47)
[2017-09-23] MEDS: Enoxaparin Sodium 40 MG/0.4 ML SYRINGE SC SCH (08:48)
[2017-09-23] MEDS ORDERED: Conivaptan 20 MG in Premix Bag 1 BAG IVPB SCH (09:45)
--- NOTE | 2017-09-23 12:00 | PDOC.PN ---
- Subjective Encounter Start Date: 09/23/17 Encounter Start Time: 11:58 Mr. Chapman was seen today in follow-up of generalized weakness. He says he feels " blah", no new complaints. Still weak. - Objective Resuscitation Status: Resuscitation Status FULL:Full Resuscitation MAR Reviewed: Yes Vital Signs & Weight: Vital Signs (12 hours) Temp Pulse Resp BP BP BP Pulse Ox 09/23/17 08:54 97.9 F 72 18 166/84 H 94 L 09/23/17 08:47 78 166/84 H 09/23/17 08:00 98.2 F 78 18 09/23/17 04:00 98.2 F 78 18 163/94 H 94 L 09/23/17 02:18 75 174/78 H 09/23/17 00:00 98.3 F 76 18 183/79 H 93 L Weight Admit Weight 187 lb 11.2 oz Weight 185 lb 6.4 oz I&O: 09/22/17 09/23/17 09/24/17 06:59 06:59 06:59 Intake Total 2253 1480 Output Total 6150 1300 Balance -3897 180 Result Diagrams: 09/17/17 05:30 09/22/17 22:32 Additional Labs: Accuchecks 09/23/17 09/22/17 09/22/17 05:31 20:32 16:38 POC Glucose 86 89 114 H Phys Exam - Physical Examination HEENT: PERRLA Respiratory: no wheezing, no rales, no rhonchi, clear to auscultation bilateral Cardiovascular: RRR, no significant murmur Gastrointestinal: soft, non-tender, positive bowel sounds Musculoskeletal: no edema Dx/Plan (1) Generalized weakness Code(s): R53.1 - WEAKNESS Status: Acute (2) Hyponatremia Code(s): E87.1 - HYPO-OSMOLALITY AND HYPONATREMIA Status: Acute (3) CAD (coronary artery disease) Code(s): I25.10 - ATHSCL HEART DISEASE OF [place] CORONARY ARTERY W/O ANG PCTRS Status: Chronic (4) HTN (hypertension) Code(s): I10 - ESSENTIAL (PRIMARY) HYPERTENSION Status: Chronic (5) Weight loss Status: Chronic - Plan * Generalized weakness- ? etiology, possibly related to hyponatremia * His serum sodium dropped again, and he is being given another dose of Conivaptan- He had a CT of the Chest Abdomen /pelvis which was essentially negative- there is no obvious sign of malignancy so far * He has not mentioned the adbominal symptoms in the past few days- Urine for Metanephrines, and 5-HIAA are pending * HTN- blood pressure is labile. * Going forward would likely discharge home after his serum sodium is corrected and stable, and then complete work-up as outpatient
[2017-09-23] MEDS: Acetaminophen 325 MG TAB PO PRN ×2 (15:50→20:50)
--- NOTE | 2017-09-23 16:59 | PRG ---
DATE OF SERVICE: 09/23/2017 SUBJECTIVE: The patient was seen and examined. PHYSICAL EXAMINATION: VITAL SIGNS: Noted with following vital signs: Afebrile with temperature 97.9, pulse 72, respirator y rate 20, blood pressure 162/84, O2 sat 96%. HEENT: Unremarkable with moist oral mucosa. Neck was supple. No conjunctival injection or icterus. CARDIOVASCULAR: First and second heart sounds were heard. RESPIRATORY: Clear to auscultation. DIGESTIVE: Revealed a benign abdomen with positive bowel sounds. EXTREMITIES: No peripheral edema. SKIN: No new gross rash. LYMPHATICS: No peripheral lymphadenopathy. LABORATORY INVESTIGATION: Showed no chemistry today. IMPRESSION: 1. Hyponatremia in the context of problem #2. 2. Syndrome of inappropriate antidiuretic hormone 3. Generalized weakness, query cause. PLAN: 1. The patient on Vaprisol. We will continue with fluid restriction and high protein animal meat in take. 2. Close outpatient nephrology followup status post discharge strongly recommended.
[2017-09-23 17:17] LABS: Anion Gap 10 mmol/L (10-20); BUN (Urea Nitrogen) 19 mg/dL (8.4-25.7); Calc. Creatinine Clearance 139 mL/min (70-130); Calcium 9.1 mg/dL (7.8-10.44); Carbon Dioxide 33 mmol/L (23-31); Chloride 86 mmol/L (98-107); Estimated GFR-MDRD Greater than 90
[2017-09-23] MEDS: ALPRAZolam 0.5 MG TAB PO SCH (20:51)
[2017-09-23] MEDS: HYDROcodone/Acetaminophen 5/325 mg Tablet PO SCH (22:19)
[2017-09-23] MEDS: Temazepam 15 MG CAP PO PRN (23:05)
[2017-09-24 06:48] LABS: BUN (Urea Nitrogen) 13 mg/dL (8.4-25.7); Calc. Creatinine Clearance 144 mL/min (70-130); Calcium 9.1 mg/dL (7.8-10.44); Estimated GFR-MDRD Greater than 90
[2017-09-24 06:58] LABS: Anion Gap 14 mmol/L (10-20); Carbon Dioxide 35 mmol/L (23-31); Chloride 87 mmol/L (98-107)
[2017-09-24] MEDS: Carvedilol 6.25 MG TAB PO SCH ×2 (07:58→16:32)
[2017-09-24] MEDS: Enoxaparin Sodium 40 MG/0.4 ML SYRINGE SC SCH (07:59)
[2017-09-24] MEDS: Amlodipine 5 MG TAB PO SCH (07:59)
--- NOTE | 2017-09-24 14:27 | PDOC.PN ---
- Subjective Encounter Start Date: 09/24/17 Encounter Start Time: 09:15 states that he feels like the room is spinnig off and on. complains of the significant weight loss. states he has had issues preforming a strong cough as well as persitent and progressive problems with swallowing - Objective Resuscitation Status: Resuscitation Status FULL:Full Resuscitation Vital Signs & Weight: Vital Signs (12 hours) Temp Pulse Resp BP BP BP Pulse Ox 09/24/17 08:00 97.9 F 87 18 09/24/17 07:59 87 134/65 09/24/17 07:58 134/65 09/24/17 07:22 97.9 F 87 18 134/65 92 L 09/24/17 04:00 97.7 F 76 16 167/77 H 94 L Weight Admit Weight 187 lb 11.2 oz Weight 185 lb 6.4 oz I&O: 09/23/17 09/24/17 09/25/17 06:59 06:59 06:59 Intake Total 1480 2140 200 Output Total 1300 1210 Balance 180 930 200 Result Diagrams: 09/17/17 05:30 09/24/17 04:50 Additional Labs: Accuchecks 09/24/17 09/23/17 09/23/17 11:21 20:18 16:21 POC Glucose 120 H 107 108 Phys Exam - Physical Examination HEENT: PERRLA, moist MMs, sclera anicteric Neck: no nodes, no JVD, supple Respiratory: no wheezing, clear to auscultation bilateral Cardiovascular: RRR, no significant murmur, no rub Gastrointestinal: soft, non-tender, no distention Musculoskeletal: no edema, pulses present Neurological: non-focal, moves all 4 limbs Psychiatric: normal affect, A&O x 3 Skin: no rash, normal turgor, cap refill <2 seconds Dx/Plan (1) Generalized weakness Code(s): R53.1 - WEAKNESS Status: Acute (2) Hyponatremia Code(s): E87.1 - HYPO-OSMOLALITY AND HYPONATREMIA Status: Acute (3) CAD (coronary artery disease) Code(s): I25.10 - ATHSCL HEART DISEASE OF [place] CORONARY ARTERY W/O ANG PCTRS Status: Chronic (4) HTN (hypertension) Code(s): I10 - ESSENTIAL (PRIMARY) HYPERTENSION Status: Chronic (5) Weight loss Status: Chronic - Plan cont current plan of care * . sodium improved nephro followings monitor Na levels in AM will get a CT of the neck to rule out malignancy of his significant weight loss and current symptoms
--- NOTE | 2017-09-24 15:45 | PRG ---
DATE OF SERVICE: 09/24/2017 SUBJECTIVE: The patient was seen and examined, seems to be doing better renal guzman. PHYSICAL EXAMINATION: VITAL SIGNS: Noted with the following vital signs. Afebrile with temperature 97.9, pulse 87, respir atory rate 18, O2 sat of 92% with blood pressure 134/65. HEENT: Unremarkable with moist oral mucosa. Neck was supple. No conjunctival injection or icterus. CARDIOVASCULAR: First and second heart sounds were heard. EXTREMITIES: No peripheral edema. NEUROLOGIC: Alert and oriented. No lateralizing sign. LABORATORY: Laboratory investigation showed sodium of 132. IMPRESSION: 1. Hyponatremia in the context of problem #2. 2. Syndrome of inappropriate antidiuretic hormone. PLAN: 1. We will continue with high protein diet and fluid restriction. 2. Further management to be dependent on the clinical course.
--- NOTE | 2017-09-24 15:51 | CT ---
NECK CT WITH CONTRAST 09/24/17 INDICATION: Dysphagia, weight loss. FINDINGS: There is distention of the oropharyngeal airway. Epiglottis is normal in caliber and the pre-epiglott ic space is maintained. Each piriform sinus is patent. No mass at the level of the glottis. Subglotti c tracheal air column is patent. The thyroid gland is unremarkable. No intrinsic pathology of the sub mandibular glands or left parotid gland. Right parotid gland is not visualized. No mass at the nasoph arynx. There is enlargement of right jugular chain lymph nodes, measuring up to 14 mm in diameter. IMPRESSION: 1. Nonspecific mild enlargement of the right jugular chain lymph node measuring up to 14 mm. Thi s is nonspecific. Finding could be reactive versus neoplastic. Recommend clinical correlation as well as imaging followup. 2. No intrinsic mass effect of the imaged aerodigestive tract. POS: [facility]
[2017-09-24] MEDS: Acetaminophen 325 MG TAB PO PRN (16:31)
[2017-09-24] MEDS: ALPRAZolam 0.5 MG TAB PO SCH (21:15)
[2017-09-24] MEDS: HYDROcodone/Acetaminophen 5/325 mg Tablet PO SCH (22:17)
[2017-09-24] MEDS: Temazepam 15 MG CAP PO PRN (23:09)
[2017-09-25 06:05] LABS: BUN (Urea Nitrogen) 12 mg/dL (8.4-25.7); Calc. Creatinine Clearance 149 mL/min (70-130); Calcium 8.9 mg/dL (7.8-10.44); Estimated GFR-MDRD Greater than 90
[2017-09-25 06:18] LABS: Anion Gap 11 mmol/L (10-20); Carbon Dioxide 37 mmol/L (23-31); Chloride 87 mmol/L (98-107)
[2017-09-25] MEDS: Enoxaparin Sodium 40 MG/0.4 ML SYRINGE SC SCH (08:35)
[2017-09-25] MEDS: Carvedilol 6.25 MG TAB PO SCH ×2 (08:37→17:13)
[2017-09-25] MEDS: Amlodipine 5 MG TAB PO SCH (08:37)
--- NOTE | 2017-09-25 10:50 | PDOC.PN ---
- Subjective Encounter Start Date: 09/25/17 Encounter Start Time: 09:50 states he feels extremely weak and can barely walk to the door patient is still wondering why he loss "60lbs of muscle" in approx 6 months - Objective Resuscitation Status: Resuscitation Status FULL:Full Resuscitation Vital Signs & Weight: Vital Signs (12 hours) Temp Pulse Resp BP BP Pulse Ox 09/25/17 08:37 82 159/78 H 09/25/17 08:00 98.2 F 82 20 159/78 H 92 L 09/25/17 04:00 97.8 F 82 16 170/72 H 92 L Weight Admit Weight 187 lb 11.2 oz Weight 185 lb 6.4 oz I&O: 09/24/17 09/25/17 09/26/17 06:59 06:59 06:59 Intake Total 2140 1380 Output Total 1210 Balance 930 1380 Result Diagrams: 09/17/17 05:30 09/25/17 04:56 Additional Labs: Accuchecks 09/25/17 09/24/17 09/24/17 05:16 20:12 16:44 POC Glucose 103 117 H 100 09/24/17 11:21 POC Glucose 120 H Phys Exam - Physical Examination HEENT: PERRLA, moist MMs Neck: no nodes, no JVD, supple Respiratory: clear to auscultation bilateral Cardiovascular: RRR, no significant murmur Gastrointestinal: soft, non-tender, no distention Musculoskeletal: pulses present Neurological: non-focal, moves all 4 limbs Psychiatric: normal affect, A&O x 3 Skin: normal turgor, cap refill <2 seconds Dx/Plan (1) Generalized weakness Code(s): R53.1 - WEAKNESS Status: Acute (2) Hyponatremia Code(s): E87.1 - HYPO-OSMOLALITY AND HYPONATREMIA Status: Acute (3) CAD (coronary artery disease) Code(s): I25.10 - ATHSCL HEART DISEASE OF [place] CORONARY ARTERY W/O ANG PCTRS Status: Chronic (4) HTN (hypertension) Code(s): I10 - ESSENTIAL (PRIMARY) HYPERTENSION Status: Chronic (5) Weight loss Status: Chronic - Plan cont current plan of care, plan discussed w/ family, PT/OT * . monitor NA levels. trending downwards from yesterday unclear of the eiology of the muscle wasting will get ESR, CRP PT eval and treat nephro following
[2017-09-25] MEDS: Meclizine HCl 12.5 MG TAB PO PRN (12:44)
--- NOTE | 2017-09-25 14:30 | MRI ---
MRI BRAIN NONCONTRAST; Date: 09/25/17 INDICATION: Dizziness. FINDINGS: There is normal size ventricular system. Moderate chronic white matter ischemic disease present. No a cute territorial infarction or intracranial hemorrhagic susceptibility. There is mild pontine gliosis . The imaged central skull base flow-voids are grossly patent. There is a partially empty sella. Muco kelly thickening is present most notable at the left sphenoid air cell with inspissated secretions. IMPRESSION: 1. No acute territorial infarction or mass effect. 2. Moderate chronic microvascular ischemic disease. POS: [facility]
--- NOTE | 2017-09-25 14:49 | MRI ---
MR ANGIOGRAM OF NECK: Date: 09/25/17 HISTORY: Vertigo. Dizziness. COMPARISON: None. TECHNIQUE: Axial 2D and 3D [id number] imaging performed. Maximum intensity projection images are submitted f or interpretation. FINDINGS: Limited evaluation of the origin of the carotid and vertebral arteries. Visualized carotid and vertebral bodies have appropriate flow-related signal of the axial 2D and 3D t [id number] images. IMPRESSION: No evidence of significant stenosis of the visualized cervical carotid and vertebral arteries. POS: [facility]
--- NOTE | 2017-09-25 14:51 | MRI ---
MR ANGIOGRAM OF [place]: Date: 09/25/17 HISTORY: Vertigo. Dizziness. COMPARISON: None. TECHNIQUE: MR angiogram of the [place] is performed in the axial plane utilizing 3D [id number] imag ing. Maximum intensity projection images are submitted for interpretation. FINDINGS: There is symmetric flow-related signal in the distal cervical and intracranial internal carotid arter ies. Anterior circulation: Symmetric flow-related signal in the A1 and M1 segments. Symmetric flow-relate d signal in the proximal A2 segments and proximal MCA branches. Posterior circulation: Left to right PICA artery origins are unremarkable. Both vertebral arteries s upply a normal appearing basilar artery. Appropriate flow-related signal. Symmetric flow-related sign al in the left and right P1 segment. IMPRESSION: Unremarkable MR angiogram of the [place]. POS: [facility]
[2017-09-25] MEDS ORDERED: Calcium Carbonate 500 MG ChewTAB PO PRN (14:57)
--- NOTE | 2017-09-25 17:31 | PRG ---
DATE OF SERVICE: 09/25/2017 SUBJECTIVE: Patient was seen and examined, noted with the following signs. PHYSICAL EXAMINATION: VITAL SIGNS: Afebrile with temperature 98.1, pulse 81, respiratory rate of 20, O2 saturation of 94% with a blood pressure 173/76. HEENT: Unremarkable. Moist oral mucosa. Neck was supple. No conjunctival injection or icterus. CARDIOVASCULAR: First and second heart sounds were heard. RESPIRATORY: Clear to auscultation. DIGESTIVE: Revealed a benign abdomen with positive bowel sounds. EXTREMITIES: No peripheral edema. SKIN: No new gross rash. LYMPHATICS: No peripheral lymphadenopathy. LABORATORY INVESTIGATIONS: Showed sodium of 131. IMPRESSION: 1. Hyponatremia in the context of problem #2. 2. Syndrome of inappropriate antidiuretic hormone. 3. Progressive weight loss, query cause. PLAN: 1. We will continue with current fluid restriction and high protein intake. 2. Further management to be dependent on the clinical course.
[2017-09-25] MEDS: ALPRAZolam 0.5 MG TAB PO SCH (22:06)
[2017-09-25] MEDS: HYDROcodone/Acetaminophen 5/325 mg Tablet PO SCH (22:06)
[2017-09-25] MEDS: Temazepam 15 MG CAP PO PRN (23:14)
[2017-09-26] MEDS: Amlodipine 5 MG TAB PO SCH (08:09)
[2017-09-26] MEDS: Carvedilol 6.25 MG TAB PO SCH ×2 (08:09→18:03)
[2017-09-26] MEDS: Enoxaparin Sodium 40 MG/0.4 ML SYRINGE SC SCH (08:09)
--- NOTE | 2017-09-26 09:38 | PQF ---
CLINICAL DOCUMENTATION IMPROVEMENT CLARIFICATION FORM: ICD-10 Updated PLEASE DO AN ADDENDUM TO THE PROGRESS NOTE WITH ANY DOCUMENTATION UPDATES OR ADDITIONS AND CARRY THROUGH TO DC SUMMARY. THANK YOU. DATE: 09/26/17 ATTN: DR. BOWEN Please exercise your independent, professional judgment in responding to the clarification form. Clinical indicators are provided on the bottom of this form for your review Please check appropriate box(s): Conflicting documentation was noted in the Medical Record, please clarify if patient is being treated/monitored for: [ x] HYPONATREMIA [ ] SIADH [ ] Other diagnosis [ ] Unable to determine In addition, please specify: Present on Admission (POA): [ x ] Yes [ ] No [ ] Unable to determine For continuity of documentation, please document condition throughout progress notes and discharge summary. Thank You. CLINICAL INDICATORS - SIGNS / SYMPTOMS/ LABS HOSPITALIST PROGRESS NOTE 09/25: "ACUTE HYPONATREMIA" NEPHROLOGY NOTE 09/25: "1. HYPONATREMIA IN THE CONTEXT OF PROBLEM #2" " 2. SYNDROME OF INAPPROPRIATE ANTIDIURETIC HORMONE" NA+ 125 AFTER INITIAL NA+ IN PCP'S OFFICE 122 RISKS: DIZZINESS AND CONFUSION (PER ER REPORT) TREATMENT: 24 HOUR URINE TESTING NEPHROLOGY CONSULT ORTHOSTATIC VITAL SIGNS FLUID RESTRICTION (This form is maintained as a part of the permanent medical record) 2014 [employer] All Rights Reserved VENICE [email or web address] Office: [phone] [place]
--- NOTE | 2017-09-26 11:58 | PDOC.PN ---
- Subjective Encounter Start Date: 09/26/17 Encounter Start Time: 11:50 Subjective: progressive decline in conditioning, episodic vertigo - Objective Resuscitation Status: Resuscitation Status FULL:Full Resuscitation MAR Reviewed: Yes Vital Signs & Weight: Vital Signs (12 hours) Temp Pulse Resp BP BP BP Pulse Ox 09/26/17 08:00 98.1 F 83 20 164/76 H 91 L 09/26/17 04:00 97.8 F 75 16 164/72 H 155/86 H 171/71 H 92 L 09/26/17 00:00 97.5 F L 75 16 164/81 H 92 L Weight Admit Weight 187 lb 11.2 oz Weight 185 lb 6.4 oz I&O: 09/25/17 09/26/17 09/27/17 06:59 06:59 06:59 Intake Total 1380 1250 Balance 1380 1250 Result Diagrams: 09/17/17 05:30 09/25/17 04:56 Additional Labs: Accuchecks 09/26/17 09/26/17 09/25/17 11:14 05:02 20:18 POC Glucose 111 H 123 H 180 H 09/25/17 16:56 POC Glucose 107 Dx/Plan - Plan swallowing study -: cortisol level -: recall neurology * .
[2017-09-26 16:12] LABS: Epinephrine 24H Ur 38 ug/24 hr (0-20); Metanephrine,Ur 116 ug/L (Undefined); Metanephrines Total-24H 232 ug/24 hr (45-290); Norephinephrine 24H U 174 ug/24 hr (0-135); Norephinephrine,Ur 87 ug/L (Undefined); Normetanephrine,Ur 309 ug/L (Undefined); Normetanephrines-24H U 618 ug/24 hr (82-500)
--- NOTE | 2017-09-26 16:49 | RAD ---
MODIFIED BARIUM SWALLOW: Technique: Patient was given different consistencies of barium under fluoroscopic observation to asse ss foreign mechanism. Indication: Dysphagia oropharyngeal phase and dysphagia pharyngeal phase. Feeding difficulties. FINDINGS: Moderate swallowing dysfunction noted. There is premature spillage and pooling in the vallecula and p yriform sinuses of all consistencies. Penetration and cough reflex is observed with solids. Patient i s at risk of aspiration with all consistencies. See speech pathologist recommendations. POS: [facility]
[2017-09-26] MEDS: Meclizine HCl 12.5 MG TAB PO PRN (18:03)
[2017-09-26 21:46] LABS: BUN (Urea Nitrogen) 19 mg/dL (8.4-25.7); Calc. Creatinine Clearance 146 mL/min (70-130); Calcium 8.8 mg/dL (7.8-10.44); Estimated GFR-MDRD Greater than 90
[2017-09-26 21:55] LABS: Chloride 88 mmol/L (98-107)
[2017-09-26 21:58] LABS: Anion Gap 11 mmol/L (10-20); Carbon Dioxide 36 mmol/L (23-31)
[2017-09-26] MEDS: ALPRAZolam 0.5 MG TAB PO SCH (22:17)
[2017-09-26] MEDS: HYDROcodone/Acetaminophen 5/325 mg Tablet PO SCH (22:18)
--- NOTE | 2017-09-26 23:11 | PRG ---
DATE OF SERVICE: 09/26/2017 SUBJECTIVE: Mr. Solorzano reports of continued weakness in both upper and lower extremities. He also s tates that he is not able to stand up on his own without any support. He is not able to walk more th an a few steps without any support. He also continues to complain of feeling muscle aches all over. He also continues to complain of feeling dizzy and lightheaded that tends to come on intermittently and comes on even with sitting down in chair. There are no precipitating factors. He also complains of increasing difficulty with breathing as well as difficulty with his speech. He had a modified ba rium swallow done today which showed moderate swallowing dysfunction. He states that he continues to have muscles mass loss all over. This has started approximately 3 months ago. He had seen neurolog ist somewhere in town and had EMG nerve conduction study done of his lower extremities of which he do es not know result. PHYSICAL EXAMINATION: VITAL SIGNS: Blood pressure of 160/76, pulse of 78, temperature of 97.7, respirations of 18, O2 sats of 92% on room air. GENERAL: Well-developed, well-nourished male resting in bed, sitting in a chair in no appa rent distress. RESPIRATORY: Clear to auscultation bilaterally. CARDIOVASCULAR: Regular rate and rhythm. NEUROLOGIC: Mental status: The patient is awake, alert, oriented x3. Speech and language: Fluent speech. Cranial nerves: Pupils are 3 mm and reactive. Visual valencia are intact. Extraocular muscl es are intact. No nystagmus is noted. Face is symmetric. Motor exam showed normal tone and bulk. 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 Strength in both lower extremities showed 3-4/5 hip f lexion bilaterally, 5/5 hip abduction and adduction. He has 4/5 strength in the knee extension and k nee flexion on the left side and 3/5 strength in the knee extension and knee flexion on the right silvana e. Plantarflexion and dorsiflexion is 5/5 on the left side. Plantarflexion and dorsiflexion is 0/5 on the right side, which he states has been chronic. Deep tendon reflexes 2+ reflexes in both upper and lower extremities. IMPRESSION: 1. Bilateral upper and lower extremity weakness. 2. Muscle mass loss of unknown etiology. ASSESSMENT AND PLAN: Mr. Solorzano is a pleasant 67-year-old male who presented with 3-month history of gradual decline in strength of both upper and lower extremities as well as muscle mass los s. The exact etiology is unclear. He had MRI of the cervical, lumbar and thoracic spine. Cervical spine MRI showed moderate to severe central canal stenosis at C5-C6 without any cord signal changes o r cord signal abnormality. Thoracic spine MRI showed moderate to severe thecal sac stenosis througho ut the thoracic spine due to large posterior epidural fat pad and lumbar spine MRI showed broad based disk bulge at L2-L3, L4-L5 and L5-S1 without any significant central canal stenosis. MRI brain was done as well which showed no acute intracranial abnormality. MR angiogram of the head and neck were reviewed, which showed no significant intracranial or extracranial vascular abnormality. CPK level h as been mildly elevated at 274. Sed rate was negative with CRP of mildly elevated at 2.28. His mc lase was normal. Myoglobin was elevated at 235. Given the gradual progression of the weakness, this could be underlying myopathic condition, although it is difficult due to differentiate based on the fact that the CPK has been very mildly elevated. His spine MRI cannot explain his current symptoms, especially the fact that he has developed swallowing difficulties. He does not describe typical asce nding paralysis and he does have a reflexes being present as it would be unusual to have inflammatory neuropathy like Guillain-[place] syndrome or chronic inflammatory demyelinating polyneuropathy as the cause for his symptoms. I would recommend obtaining a lumbar puncture to further rule out chronic in flammatory demyelinating polyneuropathy or Guillain-Splendora as the cause for his symptoms. After lumba r puncture does not reveal the abnormally elevated protein in the CSF, then he may need EMG nerve con duction study as well as a muscle biopsy. In that case, it probably will be beneficial to transfer t o a tertiary care facility where neuromuscular specialist can be available to perform EMG nerve condu ction study as well as a muscle biopsy.
--- NOTE | 2017-09-26 23:31 | PRG ---
DATE OF SERVICE: 09/26/2017 SUBJECTIVE: The patient is noted with the following. OBJECTIVE: VITAL SIGNS: Afebrile, temperature 97.7, pulse 78, respiratory rate of 18, O2 sat 92% and blood pres sure 160/76. HEENT: Unremarkable. CARDIOVASCULAR SYSTEM: First and second heart sounds were heard. RESPIRATORY SYSTEM: Clear to auscultation. DIGESTIVE SYSTEM: Revealed benign abdomen. EXTREMITIES: No peripheral edema. IMPRESSION: 1. Hyponatremia in the context of problem #2. 2. Syndrome of inappropriate antidiuretic hormone secretion. PLAN: 1. We will continue with current conservative measures. 2. Further management will be dependent on the clinical course.
[2017-09-26] MEDS: Temazepam 15 MG CAP PO PRN (23:56)
[2017-09-27] MEDS: Enoxaparin Sodium 40 MG/0.4 ML SYRINGE SC SCH (07:49)
[2017-09-27] MEDS: Amlodipine 5 MG TAB PO SCH (09:02)
[2017-09-27] MEDS: Carvedilol 6.25 MG TAB PO SCH ×2 (09:03→16:54)
[2017-09-27 11:43] LABS: CSF, Glucose 75 mg/dl (40-70)
--- NOTE | 2017-09-27 12:08 | RAD ---
EXAM: LUMBAR PUNCTURE: HISTORY: Generalized weakness, occurring gradually. COMPARISON: None. EXPOSURE: 0.9 minutes. 208.3 mGy*^m2. 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 No fracture. Residual o ral contrast is noted in the colon. Successful lumbar puncture. Opening pressure is 27 cm of water. A total of 9 cc of clear CSF was co llected. The patient tolerated the procedure well. No immediate or post-procedure complications. TECHNIQUE: Consent was obtained to perform a lumbar puncture under fluoroscopic guidance. The L3-L4 level was d eemed appropriate. The skin was prepped and draped in sterile fashion. 1% Lidocaine, buffered with sodium bicarbonate, was used for local anesthesia. Under fluoroscopic guidance, a 22-gauge spinal ne edle was advanced into the CSF space. The inner stylette was removed. There is flow of clear CSF to the hub of the needle. Opening pressure is 27 cm of water. A total of 9 cc of clear CSF was collected. The patient tolerated the procedure well. No immediate or post-procedure complications. IMPRESSION: Technically successful lumbar puncture. Opening pressure is 27 cm of water. POS: [facility]
--- NOTE | 2017-09-27 12:32 | PDOC.PN ---
- Subjective Encounter Start Date: 09/27/17 Encounter Start Time: 12:24 Subjective: fine, no sob - Objective Resuscitation Status: Resuscitation Status FULL:Full Resuscitation MAR Reviewed: Yes Vital Signs & Weight: Vital Signs (12 hours) Temp Pulse Resp BP BP Pulse Ox 09/27/17 09:03 164/79 H 09/27/17 09:02 86 164/79 H 09/27/17 08:00 98.2 F 86 20 164/79 H 94 L Weight Admit Weight 187 lb 11.2 oz Weight 185 lb 6.4 oz I&O: 09/26/17 09/27/17 09/28/17 06:59 06:59 06:59 Intake Total 1250 1340 Output Total 200 Balance 1250 1140 Result Diagrams: 09/17/17 05:30 09/26/17 21:16 Additional Labs: Accuchecks 09/27/17 09/27/17 09/26/17 11:17 05:20 20:13 POC Glucose 97 99 125 H 09/26/17 17:14 POC Glucose 125 H Dx/Plan (1) Polyneuropathy Code(s): G62.9 - POLYNEUROPATHY, UNSPECIFIED Status: Acute (2) Generalized weakness Code(s): R53.1 - WEAKNESS Status: Acute (3) Hyponatremia Code(s): E87.1 - HYPO-OSMOLALITY AND HYPONATREMIA Status: Acute (4) CAD (coronary artery disease) Code(s): I25.10 - ATHSCL HEART DISEASE OF [place] CORONARY ARTERY W/O ANG PCTRS Status: Chronic Qualifiers: Coronary Disease-Associated Artery/Lesion type: [place] artery [place] vs. transplanted heart: [place] heart Associated angina: without angina Qualified Code(s): I25.10 - Atherosclerotic heart disease of [place] coronary artery without angina pectoris (5) HTN (hypertension) Code(s): I10 - ESSENTIAL (PRIMARY) HYPERTENSION Status: Chronic Qualifiers: Hypertension type: essential hypertension Qualified Code(s): I10 - Essential (primary) hypertension (6) Weight loss Status: Chronic - Plan large [place] neg including MRI of brain ,etc, Spinal fluid unremarkable -: mod barium swallow reveals defect -: discuss transfer to tertiary center with Dr Santizo * .
[2017-09-27] MEDS: Polyethylene Glycol 3350 17 GM Packet PO PRN (16:54)
[2017-09-27] MEDS: Acetaminophen 325 MG TAB PO PRN (16:54)
--- NOTE | 2017-09-27 21:48 | PRG ---
DATE OF SERVICE: 09/27/2017 SUBJECTIVE: The patient was seen and examined with no new complaints. PHYSICAL EXAMINATION: VITAL SIGNS: , pulse 86, respiratory rate 20, blood pressure 164/79, O2 sat 95%. HEENT: Unremarkable with moist oral mucosa. No conjunctival injection or icterus. NECK: Supple. CARDIOVASCULAR: First and second heart sounds were heard. RESPIRATORY: Clear to auscultation. DIGESTIVE: Revealed a benign abdomen. EXTREMITIES: No peripheral edema. SKIN: No new gross rash. LYMPHATICS: No peripheral lymphadenopathy. IMPRESSION: 1. Hyponatremia in the context of syndrome of inappropriate antidiuretic hormone. 2. Failure to thrive. 3. Progressive weight loss. PLAN: 1. Continue with increased protein intake. 2. . 3. Outpatient Nephrology followup.
[2017-09-27] MEDS: ALPRAZolam 0.5 MG TAB PO SCH (21:57)
[2017-09-27] MEDS: HYDROcodone/Acetaminophen 5/325 mg Tablet PO SCH (21:57)
[2017-09-27] MEDS: Temazepam 15 MG CAP PO PRN (23:05)
[2017-09-28] MEDS: Polyethylene Glycol 3350 17 GM Packet PO PRN (09:05)
[2017-09-28] MEDS: Carvedilol 6.25 MG TAB PO SCH ×2 (09:05→17:09)
[2017-09-28] MEDS: Enoxaparin Sodium 40 MG/0.4 ML SYRINGE SC SCH (09:06)
[2017-09-28] MEDS: Amlodipine 5 MG TAB PO SCH (09:06)
[2017-09-28 09:15] LABS: 5 HIAA,Urine 1.7 mg/L (Undefined); 5 HIAA-24H Urine 3.4 mg/24 hr (0.0-14.9)
[2017-09-28] MEDS ORDERED: Lorazepam 0.5 MG TAB PO PRN (12:44)
[2017-09-28] MEDS ORDERED: Temazepam 15 MG CAP PO PRN (12:45)
[2017-09-28] MEDS: Acetaminophen 325 MG TAB PO PRN (14:21)
--- NOTE | 2017-09-28 14:45 | PDOC.PN ---
- Subjective Encounter Start Date: 09/28/17 Encounter Start Time: 14:44 Subjective: still weak - Objective Resuscitation Status: Resuscitation Status FULL:Full Resuscitation MAR Reviewed: Yes Vital Signs & Weight: Vital Signs (12 hours) Temp Pulse Resp BP BP Pulse Ox 09/28/17 11:14 98.2 F 84 20 102/64 100 09/28/17 09:06 81 156/88 H 09/28/17 09:05 156/88 H 09/28/17 08:00 98.2 F 84 20 156/88 H 97 09/28/17 04:00 97.5 F L 83 159/82 H 99 Weight Admit Weight 187 lb 11.2 oz Weight 185 lb 6.4 oz I&O: 09/27/17 09/28/17 09/29/17 06:59 06:59 06:59 Intake Total 1340 910 Output Total 200 Balance 1140 910 Result Diagrams: 09/17/17 05:30 09/26/17 21:16 Additional Labs: Accuchecks 09/28/17 09/28/17 09/27/17 11:18 04:53 19:55 POC Glucose 116 H 99 147 H 09/27/17 16:27 POC Glucose 154 H Phys Exam - Physical Examination Constitutional: NAD Neck: no JVD Respiratory: clear to auscultation bilateral Cardiovascular: RRR, no significant murmur Gastrointestinal: soft, positive bowel sounds Musculoskeletal: edema present Neurological: non-focal DTRs absent Dx/Plan (1) Polyneuropathy Code(s): G62.9 - POLYNEUROPATHY, UNSPECIFIED Status: Acute (2) Generalized weakness Code(s): R53.1 - WEAKNESS Status: Acute (3) Hyponatremia Code(s): E87.1 - HYPO-OSMOLALITY AND HYPONATREMIA Status: Acute (4) CAD (coronary artery disease) Code(s): I25.10 - ATHSCL HEART DISEASE OF [place] CORONARY ARTERY W/O ANG PCTRS Status: Chronic Qualifiers: Coronary Disease-Associated Artery/Lesion type: [place] artery [place] vs. transplanted heart: [place] heart Associated angina: without angina Qualified Code(s): I25.10 - Atherosclerotic heart disease of [place] coronary artery without angina pectoris (5) HTN (hypertension) Code(s): I10 - ESSENTIAL (PRIMARY) HYPERTENSION Status: Chronic Qualifiers: Hypertension type: essential hypertension Qualified Code(s): I10 - Essential (primary) hypertension (6) Weight loss Status: Chronic - Plan working with Dr Esthela Santizo on transfer to tertiary care center * .
--- NOTE | 2017-09-28 19:04 | PRG ---
DATE OF SERVICE: 09/28/2017 SUBJECTIVE: Mr. Solorzano continues to feel weak all over and has noted increasing difficulty with nereida thing. He also has noted increasing difficulty with chewing and swallowing his food. PHYSICAL EXAMINATION: VITAL SIGNS: Stable. He is afebrile. NEUROLOGIC: Unchanged. LABORATORY DATA: Reviewed. CSF study showed WBC of 0, RBC of 1 with a protein of 25 and glucose of 75. Gram stain cultures were negative. West Nile serology is pending. His opening pressure on lumb ar puncture was slightly elevated to 27 cm of water. IMPRESSION: 1. Generalized weakness. 2. Dysphagia. 3. Dyspnea. Mr. Solorzano has had extensive workup done including MRI brain and spine, MRA head and neck and lumbar puncture which are all nonrevealing. His blood work had shown slightly elevated CPK with an elevated myoglobin. Again, I had a discussion with the patient and explained that he needs EMG nerve conduct ion study done. This can be done as an outpatient since we do not have EMG nerve conduction study fa cilities here. The other option is to [facility], where they have neurovascular specialist who can perform EMG nerve conduction study as wel l as a muscle biopsy and provide their recommendations on patient's ongoing muscle weakness. At this time, I have no further recommendations. I will sign off. Please reconsult if needed.
[2017-09-28] MEDS ORDERED: ALPRAZolam 0.5 MG TAB PO SCH (21:00)
[2017-09-28] MEDS: Docusate 100 MG CAP PO SCH (21:41)
--- NOTE | 2017-09-28 21:57 | PRG ---
DATE OF SERVICE: 09/28/2017 SUBJECTIVE: The patient complaints of weakness and noted with the following vital signs. PHYSICAL EXAMINATION: VITAL SIGNS: Afebrile with temperature 98.2, pulse 84, blood pressure 156/80, respiratory rate 20 an d O2 sat of 100% on 2 L. HEENT: Unremarkable with moist oral mucosa. NECK: Supple. No conjunctival injection or icterus. CARDIOVASCULAR: First and second heart sounds were heard. RESPIRATORY: Clear to auscultation. DIGESTIVE: Revealed a benign abdomen with positive bowel sounds. EXTREMITIES: No peripheral edema. SKIN: No new gross rash. LYMPHATICS: No peripheral lymphadenopathy. LABORATORY INVESTIGATIONS: Sodium 130. IMPRESSION: 1. Severe hyponatremia, seems to be stable. PLAN: 1. We will continue high protein diet. 2. . 3. Further management to be dependent on clinical course.
[2017-09-28] MEDS: HYDROcodone/Acetaminophen 5/325 mg Tablet PO SCH (22:34)
[2017-09-29] MEDS: Carvedilol 6.25 MG TAB PO SCH ×2 (09:23→16:43)
[2017-09-29] MEDS: Docusate 100 MG CAP PO SCH (09:24)
[2017-09-29] MEDS: Enoxaparin Sodium 40 MG/0.4 ML SYRINGE SC SCH (09:24)
[2017-09-29] MEDS: Amlodipine 5 MG TAB PO SCH (09:24)
--- NOTE | 2017-09-29 10:08 | PDOC.PN ---
- Subjective Encounter Start Date: 09/29/17 Encounter Start Time: 10:06 Subjective: no change - Objective Resuscitation Status: Resuscitation Status FULL:Full Resuscitation Vital Signs & Weight: Vital Signs (12 hours) Temp Pulse Resp BP BP Pulse Ox 09/29/17 09:24 80 165/86 H 09/29/17 09:23 165/86 H 09/29/17 07:45 97.8 F 102 H 93 H 141/58 H 93 L Weight Admit Weight 187 lb 11.2 oz Weight 185 lb 6.4 oz I&O: 09/28/17 09/29/17 09/30/17 06:59 06:59 06:59 Intake Total 910 1300 Output Total 100 Balance 910 1300 -100 Result Diagrams: 09/17/17 05:30 09/26/17 21:16 Additional Labs: Accuchecks 09/29/17 09/28/17 09/28/17 06:58 20:22 16:43 POC Glucose 105 103 131 H 09/28/17 11:18 POC Glucose 116 H Phys Exam - Physical Examination Constitutional: NAD Neck: no JVD Respiratory: clear to auscultation bilateral Cardiovascular: RRR, no significant murmur Gastrointestinal: soft, positive bowel sounds Musculoskeletal: no edema ataxic, swallowing dysfcn, etc Dx/Plan (1) Polyneuropathy Code(s): G62.9 - POLYNEUROPATHY, UNSPECIFIED Status: Acute (2) Generalized weakness Code(s): R53.1 - WEAKNESS Status: Acute (3) Hyponatremia Code(s): E87.1 - HYPO-OSMOLALITY AND HYPONATREMIA Status: Acute (4) CAD (coronary artery disease) Code(s): I25.10 - ATHSCL HEART DISEASE OF [place] CORONARY ARTERY W/O ANG PCTRS Status: Chronic Qualifiers: Coronary Disease-Associated Artery/Lesion type: [place] artery [place] vs. transplanted heart: [place] heart Associated angina: without angina Qualified Code(s): I25.10 - Atherosclerotic heart disease of [place] coronary artery without angina pectoris (5) HTN (hypertension) Code(s): I10 - ESSENTIAL (PRIMARY) HYPERTENSION Status: Chronic Qualifiers: Hypertension type: essential hypertension Qualified Code(s): I10 - Essential (primary) hypertension (6) Weight loss Status: Chronic - Plan call [facility] for referral * .
[2017-09-29 12:14] LABS: West Nile Virus IgG Ab - CSF Negative (Negative); West Nile Virus IgM Ab - CSF Negative (Negative)
[2017-09-29 12:57] VITALS: TEMP 98.2
--- NOTE | 2017-09-29 15:41 | DIS ---
DATE OF ADMISSION: 09/16/2017 DATE OF DISCHARGE: 09/29/2017 DISCHARGE DISPOSITION: Discharged to [facility] care of the Neurology Service. PRIMARY CARE PROVIDER: Dr. Sahil Nolan. FINAL DIAGNOSES: Polyneuropathy, generalized weakness, hyponatremia, coronary artery disease, hypert ension and weight loss. DISCHARGE MEDICATIONS: Albuterol, ProAir HFA 2 puffs q.4 hours p.r.n., Zanaflex 4 mg q.i.d. p.r.n., Restoril 30 mg p.o. at bedtime p.r.n., polyethylene glycol 17 grams in water p.r.n., [place] 5/325 one p.o. at bedtime, Colace 100 mg twice a day, Coreg 6.25 mg twice a day, calcium carbonate 500 mg p.o. p.r.n., Norvasc 5 mg a day and Xanax 0.5 mg at bedtime. ALLERGIES: No known drug allergies. PENDING AT THE TIME OF DISCHARGE: Nothing. HOSPITAL COURSE: The patient was admitted to [facility] from the emergen cy room. His initial complaint was generalized weakness and weight loss. He reports 40-pound weight loss over the past 4 months, frequent falls. He had a mild leukopenia, normal hemoglobin and normal platelet count. Sodium 123. He was placed in the hospital and started on IV saline. Dr. Guido garcia was consulted for the weight loss. The patient underwent EGD with biopsy, path specimen duodenum r evealed an unremarkable duodenal mucosa. No evidence of celiac sprue. On 09/19/2017, seen in consul tation by Dr. Velma Santizo of Neurology. Strength was significantly diminished in the hip flexors, mil dly diminished in the knee flexors. He had a right foot drop. Sensation was grossly intact. At norma t point, a C-spine of the MRI was done, which revealed no high-grade central canal stenosis. Lumbar spine MRI was done, no significant central canal stenosis. Thoracic MRI was done, it showed minimal syrinx isolated to the thoracic spine. The patient has soft tissue CT of the neck, 09/24/2017, no ma ss effect. This was done because of dysphagia. He had a brain MRI and brain MRA, which showed no si gnificant disease on 09/25. He had a modified barium swallow on 09/26, showed moderate swallowing dy sfunction with patient at risk for all things on 09/22/2017 he had an LP body fluids CSF 1 red cell, no white cells, colorless, glucose 75, VDRL nonreactive. West Nile nonreactive, protein 25, hepatiti s B studies were negative. Dr. Anuj Finney recommended transfer to [facility] Neurology for furthe r evaluation with and EMG studies and a muscle biopsy today. I spoke with Neurology at [facility] silva ve agreed to accept the patient in transfer. The patient is being transferred to [facility] Neurology Service for further evaluation Thoracic syrinx.
[2017-09-29 16:44] VITALS: BP 143/76
--- NOTE | 2017-09-30 09:07 | PRG ---
DATE OF SERVICE: 09/29/2017 SUBJECTIVE: The patient was seen and examined, to be transferred to [place]. PHYSICAL EXAMINATION: VITAL SIGNS: Temperature 97.8, pulse 80, respiratory 16, O2 saturation 93%, blood pressure was 165/8 6. HEENT: Unremarkable with moist oral mucosa. NECK: Supple. No conjunctival injection or icterus. CARDIOVASCULAR: First and second heart sounds were heard. RESPIRATORY: Clear to auscultation. DIGESTIVE SYSTEM: Benign. Positive bowel sounds. EXTREMITIES: No peripheral edema. SKIN: No new gross rash. LYMPHATICS: No peripheral lymphadenopathy. IMPRESSION: 1. Hyponatremia in context of syndrome of inappropriate antidiuretic hormone secretion. 2. Progressive weight loss. PLAN: 1. The patient is in the process of being transferred to the [place] area for further management. 2. Further management to be dependent on clinical course.
== END 2017-09-29 17:33 | disposition short-term general hospital (02) | DRG 641 ==
LOC: ERS 15:51 → 2NO 18:00 → T4-B 09-17 17:34
PROVIDERS: ADMIT Internal Medicine; ATTEND Internal Medicine
PROC: 0DB98ZX Excision of Duodenum, Via Natural or Artificial Opening Endoscopic, Diagnostic (ICD-10-PCS; principal; 2017-09-18)
PROC: 009U3ZZ Drainage of Spinal Canal, Percutaneous Approach (ICD-10-PCS; 2017-09-27)
DX: E87.1 Hypo-osmolality and hyponatremia (principal); G62.9 Polyneuropathy, unspecified; I10 Essential (primary) hypertension; I25.10 Atherosclerotic heart disease of native coronary artery without angina pectoris; R63.4 Abnormal weight loss; Z91.81 History of falling; K21.9 Gastro-esophageal reflux disease without esophagitis; F41.9 Anxiety disorder, unspecified; Z87.891 Personal history of nicotine dependence; Z23 Encounter for immunization; R62.7 Adult failure to thrive; Z68.23 Body mass index [BMI] 23.0-23.9, adult; R63.6 Underweight; R13.10 Dysphagia, unspecified
CPT/HCPCS: 36415; 36416; 62270; 70491; 70544; 70547; 70551; 71260; 72141; 72146; 72148; 74177; 74230; 80048; 80053; 80061; 82085; 82384; 82436; 82533; 82550; 82570; 82945; 83497; 83735; 83835; 83930; 83935; 84133; 84157; 84295; 84300; 84443; 85025; 85652; 86140; 86592; 86704; 86705; 86706; 86707; 86788; 86789; 87070; 87205; 87340; 87350; 88305; 89051; 90471; 90732; 99285; A4216; G0009; G8978-GP-CK; G8979-GP-CI; G8987-GO-CJ; G8988-GO-CI; G8996-GN-CL; G8996-GN-CM; G8997-GN-CK; G8997-GN-CL; J0360; J1650; J2704

== ENCOUNTER 2017-12-09 05:16 | Inpatient (IN) | payer MEDICARE ==
[2017-12-09 07:00] LABS: #Eosinphils 0.1 thou/uL (0.0-0.7); #Lymphocytes 0.8 thou/uL (1.20-3.40); #Monocytes 0.3 thou/uL (0.11-0.59); %Basophils 0.1 % (0.0-1.0); %Eosinophils 1.2 % (0.0-10.0); %Lymphocytes 9.9 % (21.0-51.0); %Monocytes 3.1 % (0.0-10.0); %Neutrophils 85.7 % (42.0-75.0); Hemoglobin 15.2 g/dL (14.0-18.0); Mean Corpuscular Hemoglobin 31.9 pg (27.0-31.0); Mean Corpuscular Volume 96.8 fl (80.0-94.0); Mean Platelet Volume 7.8 fL (7.4-10.4); Platelet Count 254 thou/uL (130-400); RBC Distribution Width 12.5 % (11.5-14.5); Red Blood Cell (RBC) Count 4.75 mill/uL (4.70-6.10); White Blood Cell (WBC) Count 8.1 thou/uL (4.8-10.8)
[2017-12-09 07:26] LABS: ALT (SGPT) 25 U/L (8-55); AST (SGOT) 26 U/L (5-34); Albumin 4.2 g/dL (3.4-4.8); Alkaline Phosphatase 73 U/L (40-150); Anion Gap 10 mmol/L (10-20); BUN (Urea Nitrogen) 13 mg/dL (8.4-25.7); Bilirubin, Total 0.7 mg/dL (0.2-1.2); Calc. Creatinine Clearance 0 mL/min (70-130); Calcium 9.6 mg/dL (7.8-10.44); Carbon Dioxide 37 mmol/L (23-31); Chloride 94 mmol/L (98-107); Estimated GFR-MDRD Greater than 90; Globulin 2.8 g/dL (2.4-3.5); Glucose 115 mg/dL (80-115); Potassium 4.7 mmol/L (3.5-5.1); Sodium 136 mmol/L (136-145)
--- NOTE | 2017-12-09 07:30 | RAD ---
SINGLE VIEW CHEST: Date: 12/09/17 COMPARISON: None. HISTORY: Difficulty breathing/dyspnea. FINDINGS: Single view of the chest shows a normal sized cardiomediastinal silhouette. There is no evidence of c onsolidation, mass, or pleural effusion. The bones are unremarkable. IMPRESSION: No evidence of acute cardiopulmonary disease. POS: OFF
[2017-12-09] MEDS ORDERED: HYDROcodone/Acetaminophen 5/325 mg Tablet PO PRN ×2 (11:33)
[2017-12-09] MEDS ORDERED: Bisacodyl 5 MG TAB PO PRN (11:33)
[2017-12-09] MEDS ORDERED: HYDROcodone/Acetaminophen 7.5/325 mg Tablet ONE (11:50)
[2017-12-09 12:53] LABS: pH, Arterial 7.27 (7.35-7.45)
[2017-12-09 12:57] LABS: Actual Bicarbonate (HCO3a) 36.4 mEq/L (22-26); CO2 Tension 81.4 mmHg (35.0-45.0); O2 Tension (PaO2) 142.6 mmHg (80.0-100.0)
[2017-12-09 12:58] LABS: Base Excess (BEa) 6.1 mEq/L (0 (+/-) 2.5); Calcium, Ionized 1.2 mmol/L (1.12-1.30); Hematocrit-ABG 50.9 % (42.0-52.0); Puncture Site RR
[2017-12-09 14:11] VITALS: BMI 24.1
--- NOTE | 2017-12-09 15:14 | CON ---
DATE OF CONSULTATION: 12/09/2017 CONSULTING PHYSICIAN: Dr. Hutchins. REASON FOR CONSULTATION: Acute on chronic respiratory failure. HISTORY OF PRESENT ILLNESS: The patient is a 67-year-old male who is able to provide his own history in conjunction with what I have obtained from talking with Dr. Hutchins and reading and his old history and physical. He is 67 years old. He was recently diagnosed with ALS. He says he had a sleep study while in [facility] last month. He was [facility] to a [facility] on a Bi[facility] machine. He was discharged from the [facility] 3 days ago, but the [facility] failed to secure BiPAP at home for the patient. He came in here today basically because he was having respiratory failure from not having access to his BiPAP. PAST MEDICAL HISTORY: 1. Amyotrophic lateral sclerosis. 2. Hypertension. 3. Coronary artery disease. 4. Gastroesophageal reflux and peripheral neuropathy. 5. Compartment syndrome on the right lower extremity. PAST SURGICAL HISTORY: 1. Neck surgery. 2. Right knee surgery. 3. Left arm surgery. 4. Rotator cuff surgery. SOCIAL HISTORY: Former smoker, does not consume alcohol, does not use illicit drugs. ALLERGIES: None. PSYCHIATRIC HISTORY: Significant for anxiety. MEDICATIONS PRIOR TO ADMISSION: Zanaflex, Restoril, MiraLax, [place], Colace, Coreg, Tums, Norvasc, ProAir and Xanax. REVIEW OF SYSTEMS: Remarkable for marked weakness in his extremities. He has no difficulty swallowing. He had difficulty breathing. He is ambulating with a walker. He has had no abnormal eye movements. The remainder of 12 point review of systems is negative. PHYSICAL EXAMINATION: VITAL SIGNS: O2 sat 98% on BiPAP, pulse 85, respirations 25. GENERAL: He is currently on BiPAP, looks relaxed. He can talk through the facemask without much difficulty. HEENT: Pupils react. Sclerae are anicteric. Oropharynx clear. NECK: No thyromegaly, no JVD, no bruits. LUNGS: Diminished, but clear breath sounds. CARDIOVASCULAR: S1, S2 regular. ABDOMEN: Soft, nontender. EXTREMITIES: He has severe muscle wasting. He has no obvious skin lesions. No palpable lymphadenopathy. LABORATORY DATA: On 3 liters nasal cannula, his pH was 7.27, pCO2 of 81, pO2 of 142. White blood cell count 8.1, hematocrit 46, platelet count 254. Sodium 136, potassium 4.7, chloride 94, CO2 of 37, BUN 13, creatinine 0.6, glucose 115. ASSESSMENT: Amyotrophic lateral sclerosis with chronic respiratory failure secondary to hypoventilation. PLAN: Discussed with the home equipment company. I am not sure why BiPAP was not set up at home, but we will qualify him by getting a room air blood gas and demonstrating hypercapnia. He should be able go home after that. 70 minutes of time was spent performing this consultation. Of that 70 min, greater than 50% of the time was spent with the patient and/or on the patient's floor MTDD
--- NOTE | 2017-12-09 15:47 | HP ---
PRIMARY CARE PHYSICIAN: Sahil Nolan M.D. CHIEF COMPLAINT: Shortness of breath. HISTORY OF PRESENT ILLNESS: Mr. Flynn is a pleasant 67-year-old gentleman who was seen at [facility] on 12/09/2017. He was hospitalized at this facility in 09/2017. He was transferred to [facility] for n eurologic studies. While there, he was diagnosed with ALS. He was discharged subsequently to a nurs ing home in [place], [place]. While at the [facility], he was treated with BiPAP and nebulizers. He was discharged from the [facility] 2 days ago. Apparently, the [facility]p made a referral for B iPAP equipment as well as nebulizer equipment. Apparently, Medicare needed more documentation and he never received the machines. He started feeling short of breath at home. He came to the emergency room because of that. He reports occasional cough that is nonproductive. He denies any fevers or chills. He denies any ch est pain. He denies any abdominal pain. REVIEW OF SYSTEMS: The following complete review of systems was negative, unless otherwise mentioned in the HPI or below: Constitutional: Weight loss or gain, ability to conduct usual activities. Skin: Rash, itching. Eyes: Double vision, pain. ENT/Mouth: Nose bleeding, neck stiffness, pain, tenderness. Cardiovascular: Palpitations, dyspnea on exertion, orthopnea. Respiratory: Shortness of breath, wheezing, cough, hemoptysis, fever or night sweats. Gastrointestinal: Poor appetite, abdominal pain, heartburn, nausea, vomiting, constipation, or diarrhea. Genitourinary: Urgency, frequency, dysuria, nocturia. Musculoskeletal: Pain, swelling. Neurologic/Psychiatric: Anxiety, depression. Allergy/Immunologic: Skin rash, bleeding tendency. PAST MEDICAL HISTORY: Significant for recently diagnosed ALS, hypertension, coronary artery disease, gastroesophageal reflux disease and Infante's tumor. PAST SURGICAL HISTORY: Significant for compartment syndrome on the right lower extremity surgery, ne ck surgery, right knee surgery, left arm surgery for shrapnel and a right rotator cuff surgery. PSYCHIATRIC HISTORY: Anxiety. SOCIAL HISTORY: The patient denies tobacco use, alcohol use or recreational drug use. FAMILY HISTORY: Significant for malignancy in his father. ALLERGIES: No known drug allergies. CURRENT MEDICATIONS: Include [place] 7.5/325 mg as needed, lisinopril 5 mg daily, ProAir HFA 90 mcg 2 puffs as needed, carvedilol 6.25 mg 2 times a day. CODE STATUS: I discussed his code status. He is DNR. PHYSICAL EXAMINATION: GENERAL: Mr. Flynn is awake, alert, not in acute distress. VITAL SIGNS: Blood pressure is 152/91, pulse is 81. His breathing at rate of 23 and saturating 98% on 3 liters of oxygen. EYES: No scleral icterus, no conjunctival pallor. ENT: Moist mucosal membranes. No oropharyngeal erythema or exudates. NECK: Supple, nontender, normal range of movement. Trachea is midline. RESPIRATORY: Accessory muscles of breathing are mildly active. Chest wall movements are symmetric b ilaterally. LUNGS: Clear to auscultation without wheeze, rhonchi or crepitations. CARDIOVASCULAR: S1 and S2 are heard, regular. LUNGS: Peripheral pulses palpable. No carotid bruit, no pericardial rub. ABDOMEN: Soft, nontender, bowel sounds heard, no hepatomegaly, no splenomegaly. NEUROLOGIC: Cranial nerves II-XII are intact. Power is 4+/5 in all 4 extremities. Deep tendon refl exes are 2+. MUSCULOSKELETAL: Power as described above. SKIN: No rashes or subcutaneous nodules. LYMPHATIC: No cervical lymphadenopathy. PSYCHIATRIC: The patient appears anxious, oriented to person, place, and time. LABORATORY DATA: Mr. Mcpherson's labs and investigations were reviewed. I reviewed his electrocardiog laila, which shows normal sinus rhythm, no ST changes to suggest an acute coronary syndrome. I also re viewed his chest x-ray, which does not show any pulmonary infiltrates. Laboratory investigation show normal white count, normal hemoglobin, normal platelet count, D-dimer was 0.32, normal sodium, agustín l potassium, elevated carbon dioxide of 37, normal blood urea nitrogen, normal creatinine, normal betty er profile, and normal BNP. Arterial blood gases show pH of 7.27, pCO2 of 81.4 and pO2 of 142.6. ASSESSMENT AND PLAN: Mr. Flynn is a pleasant 67-year-old gentleman who was seen at [facility]. His problem list includes: 1. Acute hypercapnic respiratory failure: Mr. Flynn will be admitted to the hospital for further m anagement. He will be started on bilevel positive airway pressure therapy. [employer] service wi ll be consulted. Case management will also be consulted to look into obtaining his durable medical e quipment. 2. Amyotrophic lateral sclerosis: Symptomatic management. 3. Hypertension: Monitor vital signs, titrate antihypertensives as needed. 4. Coronary artery disease: Appears to be stable. Many thanks for allowing me to participate in your patient's care. Please feel free to contact me wi th any questions or concerns. LEVEL OF RISK: High. LEVEL OF COMPLEXITY: High.
[2017-12-10 04:27] LABS: #Lymphocytes 1.2 thou/uL (1.20-3.40); #Monocytes 0.7 thou/uL (0.11-0.59); #Neutrophils 4.3 thou/uL (1.40-6.50); %Basophils 0.3 % (0.0-1.0); %Eosinophils 0.5 % (0.0-10.0); %Lymphocytes 19.2 % (21.0-51.0); %Monocytes 10.9 % (0.0-10.0); %Neutrophils 69.1 % (42.0-75.0); Hemoglobin 14.3 g/dL (14.0-18.0); Mean Corpuscular HGB CONC 31.6 g/dL (32.0-36.0); Mean Corpuscular Hemoglobin 30.7 pg (27.0-31.0); Mean Corpuscular Volume 97.1 fl (80.0-94.0); Mean Platelet Volume 7.8 fL (7.4-10.4); Platelet Count 242 thou/uL (130-400); RBC Distribution Width 12.6 % (11.5-14.5); Red Blood Cell (RBC) Count 4.67 mill/uL (4.70-6.10); White Blood Cell (WBC) Count 6.2 thou/uL (4.8-10.8)
[2017-12-10 04:35] LABS: Anion Gap 14 mmol/L (10-20); BUN (Urea Nitrogen) 25 mg/dL (8.4-25.7); Calc. Creatinine Clearance 111 mL/min (70-130); Calcium 9.3 mg/dL (7.8-10.44); Carbon Dioxide 30 mmol/L (23-31); Chloride 96 mmol/L (98-107); Estimated GFR-MDRD Greater than 90; Glucose 91 mg/dL (80-115); Potassium 4.5 mmol/L (3.5-5.1); Sodium 135 mmol/L (136-145)
[2017-12-10] MEDS ORDERED: Enoxaparin Sodium 40 MG/0.4 ML SYRINGE SC SCH (09:00)
[2017-12-10 11:15] VITALS: TEMP 99
--- NOTE | 2017-12-10 11:51 | PRG ---
DATE OF SERVICE: 12/10/2017 SUBJECTIVE: Patient is awake, alert, and very vibrant this morning. He used the hospital's BiPAP la st night, but his home BiPAP has been delivered. OBJECTIVE: VITAL SIGNS: Temperature is 99, pulse 88, respirations 17, O2 sat 96% on 2 liters, blood pressure 12 4/69. HEENT: Unremarkable. NECK: No JVD. CHEST: Clear. CARDIAC: S1 and S2, regular. ABDOMEN: Soft. EXTREMITIES: No edema. LABORATORY DATA: Sodium 135, potassium 4.5, BUN 25, creatinine 0.7. White blood cell count 6.2, hem atocrit 45, platelet count 242. ASSESSMENT: Chronic hypercapnic respiratory failure secondary to amyotrophic lateral sclerosis. RECOMMENDATION: He is cleared to go home. I spent a significant amount of time showing him how to u se the BiPAP machine and fitting his mask. He has followup with Dr. Nolan in the future. He is free to follow up with me in the office any time he wants.
[2017-12-10 12:04] VITALS: BP 116/77
--- NOTE | 2017-12-10 12:22 | DIS ---
DATE OF ADMISSION: 12/09/2017 DATE OF DISCHARGE: 12/10/2017 PRIMARY CARE PHYSICIAN: Sahil Nolan M.D. DISCHARGE DIAGNOSIS: Chronic hypercapnic respiratory failure secondary to amyotrophic lateral sclero sis. CONDITION OF PATIENT ON THE DAY OF DISCHARGE: Stable. I assessed Mr. Mcpherson on the day of discharg e. He denies any chest pain or shortness of breath. PHYSICAL EXAMINATION: VITAL SIGNS: Stable. HEART: S1 and S2 are heard, regular. LUNGS: Clear to auscultation bilaterally. DISCHARGE MEDICATIONS: No change was made to his preadmission home medications as dictated on histor y and physical note from 12/09/2017. HOSPITAL COURSE: Mr. Mcpherson is a pleasant 67-year-old gentleman who was admitted to [facility] for chronic hypercapnic respiratory failure secondary to ALS. He did not have a B iPAP machine at home. He was seen by Pulmonology Service and arrangements were made for BiPAP alayna e. BiPAP machine was delivered while he was in the hospital, and he is being discharged home with it . Many thanks for allowing me to participate in your patient's care. Please feel free to contact me wi th any questions or concerns. DISCHARGE DESTINATION: Home. TOTAL AMOUNT OF TIME SPENT COORDINATING THIS DISCHARGE: 32 minutes.
--- NOTE | 2017-12-10 18:36 | EKG ---
Test Reason : Blood Pressure : / mmHG Vent. Rate : 076 BPM Atrial Rate : 076 BPM P-R Int : 140 ms QRS Dur : 090 ms QT Int : 388 ms P-R-T Axes : 060 021 058 degrees QTc Int : 436 ms Normal sinus rhythm No reciprocial changes Normal ECG Confirmed by AARON CHAMBERLAIN, LORAINE ([id number]), restaurant expeditor ZULEIKA PARHAM ([id number]) on 12/10/2017 6:36:00 PM Referred By: Confirmed By:LORAINE WALKER MD
== END 2017-12-10 14:13 | disposition home or self-care (01) | DRG 189 ==
LOC: ERS 05:16 → T4-A 12:07 → IMCU/EMU 13:48
PROVIDERS: ADMIT Internal Medicine; ATTEND Internal Medicine
PROC: 5A09357 Assistance with Respiratory Ventilation, Less than 24 Consecutive Hours, Continuous Positive Airway Pressure (ICD-10-PCS; principal; 2017-12-09)
DX: J96.22 Acute and chronic respiratory failure with hypercapnia (principal); G12.21 Amyotrophic lateral sclerosis; Z99.81 Dependence on supplemental oxygen; I10 Essential (primary) hypertension; I25.10 Atherosclerotic heart disease of native coronary artery without angina pectoris; K21.9 Gastro-esophageal reflux disease without esophagitis; G62.9 Polyneuropathy, unspecified; Z87.891 Personal history of nicotine dependence; F41.9 Anxiety disorder, unspecified; Z66 Do not resuscitate
CPT/HCPCS: 36415; 71045; 80048; 80053; 82805; 83880; 85025; 85379; 93005; 94640; 94660; G8978-GP-CK; G8979-GP-CI; J7620

== ENCOUNTER 2017-12-28 16:08 | Inpatient (IN) | payer MEDICARE ==
[2017-12-28] MEDS ORDERED: Lorazepam 2 MG/ML VIAL ONE (16:22)
[2017-12-28 16:50] LABS: #Eosinphils 0.1 thou/uL (0.0-0.7); #Lymphocytes 1.4 thou/uL (1.20-3.40); #Monocytes 0.4 thou/uL (0.11-0.59); %Basophils 0.8 % (0.0-1.0); %Eosinophils 1.8 % (0.0-10.0); %Lymphocytes 23.8 % (21.0-51.0); %Monocytes 6.7 % (0.0-10.0); %Neutrophils 66.9 % (42.0-75.0); Hemoglobin 14.2 g/dL (14.0-18.0); Mean Corpuscular HGB CONC 32.5 g/dL (32.0-36.0); Mean Corpuscular Hemoglobin 30.5 pg (27.0-31.0); Mean Corpuscular Volume 93.9 fl (80.0-94.0); Mean Platelet Volume 7.3 fL (7.4-10.4); Platelet Count 274 thou/uL (130-400); RBC Distribution Width 12.4 % (11.5-14.5); Red Blood Cell (RBC) Count 4.65 mill/uL (4.70-6.10)
--- NOTE | 2017-12-28 16:58 | RAD ---
CHEST ONE VIEW: 12/28/17 HISTORY: Chest pain. Nausea and vomiting. FINDINGS: Cardiac silhouette and pulmonary vasculature are unremarkable. Mediastinum is midline. There is no lo bar consolidation or evidence of pneumothorax. playground monitor leads overlie the chest. IMPRESSION: No active cardiopulmonary abnormalities are demonstrated. POS: [facility]
[2017-12-28 17:11] LABS: ALT (SGPT) 22 U/L (8-55); AST (SGOT) 22 U/L (5-34); Albumin 3.8 g/dL (3.4-4.8); Alkaline Phosphatase 61 U/L (40-150); Anion Gap 13 mmol/L (10-20); BUN (Urea Nitrogen) 11 mg/dL (8.4-25.7); Bilirubin, Total 0.7 mg/dL (0.2-1.2); Calc. Creatinine Clearance 0 mL/min (70-130); Carbon Dioxide 29 mmol/L (23-31); Chloride 99 mmol/L (98-107); Estimated GFR-MDRD Greater than 90; Globulin 2.6 g/dL (2.4-3.5); Glucose 93 mg/dL (80-115); Magnesium 2.9 mg/dL (1.6-2.6); Potassium 3.8 mmol/L (3.5-5.1); Protein, Total 6.4 g/dL (5.8-8.1); Sodium 137 mmol/L (136-145)
[2017-12-28 17:18] LABS: CKMB 9.8 ng/mL (0-6.6)
[2017-12-28] MEDS ORDERED: methylPREDNISolone Sod Succ/PF 125 MG/2 ML VIAL ONE (17:22)
[2017-12-28] MEDS ORDERED: Water For Inject, Bacteriostat 30 ML ONE (17:30)
[2017-12-28] MEDS ORDERED: HYDROcodone/Acetaminophen 10/325 mg Tablet ONE (18:46)
[2017-12-28 20:28] VITALS: BMI 24.0
[2017-12-28 21:05] LABS: Troponin I 0.015 ng/mL (< 0.028)
[2017-12-28 23:10] LABS: Troponin I Less than 0.010 ng/mL (< 0.028)
[2017-12-29] MEDS ORDERED: Senokot 8.6 MG TAB PO PRN (01:42)
[2017-12-29] MEDS ORDERED: Acetaminophen 325 MG TAB PO PRN (01:42)
[2017-12-29] MEDS ORDERED: Guaifenesin DM 100-10/5 ML UDCUP PO PRN (01:42)
[2017-12-29] MEDS ORDERED: Ibuprofen 200 MG TAB PO PRN (01:42)
[2017-12-29] MEDS ORDERED: HYDROcodone/Acetaminophen 7.5/325 mg Tablet PO SCH (02:00)
[2017-12-29] MEDS ORDERED: traZODone HCl 50 MG TAB PO SCH ×2 (02:00→21:00)
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
[2017-12-29 08:00] LABS: #Basophils 0.1 thou/uL (0.0-0.2); #Lymphocytes 0.6 thou/uL (1.20-3.40); #Monocytes 0.1 thou/uL (0.11-0.59); #Neutrophils 3.9 thou/uL (1.40-6.50); %Basophils 1.6 % (0.0-1.0); %Eosinophils 0.1 % (0.0-10.0); %Monocytes 2.9 % (0.0-10.0); %Neutrophils 82.3 % (42.0-75.0); Hemoglobin 14.5 g/dL (14.0-18.0); Mean Corpuscular HGB CONC 32.3 g/dL (32.0-36.0); Mean Corpuscular Hemoglobin 30.5 pg (27.0-31.0); Mean Corpuscular Volume 94.5 fl (80.0-94.0); Mean Platelet Volume 7.3 fL (7.4-10.4); Platelet Count 282 thou/uL (130-400); RBC Distribution Width 12.3 % (11.5-14.5); Red Blood Cell (RBC) Count 4.74 mill/uL (4.70-6.10); White Blood Cell (WBC) Count 4.7 thou/uL (4.8-10.8)
[2017-12-29 08:19] LABS: Anion Gap 12 mmol/L (10-20); BUN (Urea Nitrogen) 16 mg/dL (8.4-25.7); Calc. Creatinine Clearance 134 mL/min (70-130); Calcium 9.4 mg/dL (7.8-10.44); Carbon Dioxide 33 mmol/L (23-31); Chloride 96 mmol/L (98-107); Estimated GFR-MDRD Greater than 90; Glucose 144 mg/dL (80-115); Potassium 4.7 mmol/L (3.5-5.1); Sodium 136 mmol/L (136-145)
[2017-12-29] MEDS: Amlodipine 5 MG TAB PO SCH (09:00)
[2017-12-29] MEDS ORDERED: Famotidine 20 MG TAB PO SCH (09:00)
[2017-12-29] MEDS: Enoxaparin Sodium 40 MG/0.4 ML SYRINGE SC SCH (09:02)
[2017-12-29] MEDS: HYDROcodone/Acetaminophen 7.5/325 mg Tablet PO SCH ×3 (09:03→23:01)
[2017-12-29] MEDS: Docusate 100 MG CAP PO SCH ×2 (09:03→21:11)
--- NOTE | 2017-12-29 10:22 | PDOC.PN ---
- Subjective Encounter Start Date: 12/29/17 Encounter Start Time: 14:40 Subjective: Patient with improved SOB. Worsens at home due to family stress. -: Patient interested in going home on hospice. [facility] - Objective Resuscitation Status: Resuscitation Status DNR:Do Not Resuscitate MAR Reviewed: Yes Vital Signs & Weight: Vital Signs (12 hours) Temp Pulse Resp BP BP Pulse Ox 12/29/17 09:07 97.3 F L 98 22 H 100 12/29/17 09:00 98 142/68 H 12/29/17 07:48 97.3 F L 77 22 H 113/55 L 100 12/29/17 06:38 88 21 H 100 12/29/17 04:00 100 12/29/17 02:28 98.2 F 85 19 151/76 H 100 12/29/17 01:00 100 12/29/17 00:00 98.0 F 95 19 153/77 H 100 Weight Weight 187 lb 8 oz I&O: 12/28/17 12/29/17 12/30/17 06:59 06:59 06:59 Intake Total 205 240 Output Total 480 Balance -275 240 Result Diagrams: 12/29/17 07:52 12/29/17 07:52 Phys Exam - Physical Examination Constitutional: NAD HEENT: moist MMs Respiratory: no wheezing, no rales, no rhonchi, clear to auscultation bilateral breathless if talks too long Cardiovascular: RRR, no significant murmur Gastrointestinal: soft, positive bowel sounds Musculoskeletal: no edema Neurological: non-focal, moves all 4 limbs Psychiatric: normal affect, A&O x 3 Dx/Plan (1) Respiratory failure Code(s): J96.90 - RESPIRATORY FAILURE, UNSP, UNSP W HYPOXIA OR HYPERCAPNIA Status: Acute Comment: due to ALS (2) ALS (amyotrophic lateral sclerosis) Code(s): G12.21 - AMYOTROPHIC LATERAL SCLEROSIS Status: Chronic (3) COPD (chronic obstructive pulmonary disease) Status: Ruled-out Qualifiers: COPD type: COPD with acute exacerbation Qualified Code(s): J44.1 - Chronic obstructive pulmonary disease with (acute) exacerbation (4) CAD (coronary artery disease) Code(s): I25.10 - ATHSCL HEART DISEASE OF [place] CORONARY ARTERY W/O ANG PCTRS Status: Chronic Qualifiers: (5) HTN (hypertension) Code(s): I10 - ESSENTIAL (PRIMARY) HYPERTENSION Status: Chronic Qualifiers: - Plan cont current plan of care, continue antibiotics, respiratory therapy Appreciate Dr. Martines's assistance. * . - Discharge Day Encounter end time: 15:10
--- NOTE | 2017-12-29 13:20 | CON ---
DATE OF CONSULTATION: 12/29/2017 SERVICE: Pulmonary Medicine REASON FOR CONSULTATION: IMCU patient. HISTORY OF PRESENT ILLNESS: The patient is a pleasant 67-year-old white male with past medical history significant for ALS, which has been rapidly progressive over a very short period of time. He started having problems little over a year, maybe a year and a half ago. Over this period of time, he has had progression in weakness. For the last 3 months, he has been continuously short of breath. Multiple admissions to the hospital a couple of months ago for respiratory failure. For some reason, it was called COPD exacerbations. That being said, ultimately he was set up at home with BiPAP. Over the last couple of months, he has been increasingly dependent on this device. He essentially cannot stay away from it. He has got very poor resources at home. He previously had contact information on hospice and was planning on calling them today, so that he can be set up with some resources at home. He also is tired of struggling. As such, he is ready to discontinue aggressive services at sustaining life. He would like to make certain he is comfortable for the rest of his life. As such, he has requested hospice. PAST MEDICAL HISTORY: 1. Amyotrophic lateral sclerosis. 2. Hypertension. 3. Coronary artery disease. PAST SURGICAL HISTORY: 1. Right knee surgery. 2. Left arm surgery. 3. Right rotator cuff repair. 4. Fasciotomy for right leg compartment syndrome. ALLERGIES: No known drug allergies. MEDICATIONS: A list of his inpatient medications were reviewed. No updates were made. SOCIAL HISTORY: He quit smoking in 1999, but had a 25 pack year history of smoking prior to that. He quit heavy alcohol use in 1980. He denies any street drugs. His daughter and her boyfriend stay with him. It is a bad social situation based on what he is telling me. FAMILY HISTORY: Noncontributory. REVIEW OF SYSTEMS: General, head, ears, eyes, nose, throat, cardiovascular, respiratory, , musculoskeletal, neurologic and skin is negative except as mentioned in the HPI. PHYSICAL EXAMINATION: VITAL SIGNS: Afebrile, pulse 77, blood pressure 127/54, respirations 24, saturation 100% on 2 liters nasal cannula. GENERAL: The patient is awake, alert, in no apparent distress. LUNGS: There is very poor air entry, but there is absolutely not a prolonged expiratory phase or wheezing. No rhonchi or crackles are appreciated. HEART: Normal rate, regular. ABDOMEN: Soft, nontender, nondistended. Bowel sounds are positive. MUSCULOSKELETAL: No cyanosis or clubbing. No pitting in the bilateral lower extremities. NEUROLOGIC: Grossly nonfocal except for diffuse weakness. LABORATORIES: WBC 4.7, hemoglobin 14.5, platelets 282,000. Chloride 96, bicarbonate 33. Basic metabolic profile is otherwise unremarkable. Troponins are negative x3. BNP is unremarkable. Liver function studies are also unremarkable. ASSESSMENT: 1. Amyotrophic lateral sclerosis. 2. Chronic hypercapnic respiratory failure. PLAN: The patient does not have COPD. This is not a COPD exacerbation. He has chronic respiratory failure secondary to weakness from his ALS. Antibiotics , and steroids will be discontinued. Hospice consultation has been placed per patient request. If we can meet his needs in the outpatient setting, we will make the transition out of the hospital today. Pulmonary Critical Care will continue to follow if he remains in house. 70 minutes have been devoted to this patient in various activities. I personally reviewed all imaging studies and laboratory data noted within this document. For fifty percent of this time, I was interacting with the patient at the bedside or coordinating care with the care team. For the remainder of the time I was immediately available to the patient in the hospital unit. ORLIN
[2017-12-29] MEDS ORDERED: Lorazepam 0.5 MG TAB PO PRN (15:08)
[2017-12-29] MEDS ORDERED: Carvedilol 6.25 MG TAB PO SCH (21:00)
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
[2017-12-30] MEDS: Enoxaparin Sodium 40 MG/0.4 ML SYRINGE SC SCH (07:57)
[2017-12-30] MEDS: Docusate 100 MG CAP PO SCH (07:58)
[2017-12-30] MEDS: HYDROcodone/Acetaminophen 7.5/325 mg Tablet PO SCH ×2 (07:58→12:18)
[2017-12-30] MEDS: Amlodipine 5 MG TAB PO SCH (07:58)
--- NOTE | 2017-12-30 08:04 | PRG ---
DATE OF SERVICE: 12/30/2017 SERVICE: Pulmonary Medicine INTERVAL HISTORY: The patient is doing fine from a cardiovascular and respiratory standpoint. He is wearing BiPAP currently. He is comfortable. He denies any chest pain or shortness of breath. Othe rwise, there has been no interval change to his condition. He talked to hospice yesterday and has de cided to move in that direction. He would like to get home at some point today. PHYSICAL EXAMINATION: VITAL SIGNS: Afebrile, pulse 66, blood pressure 125/63, respirations 20, saturation 100% on 21% FiO2 delivered via BiPAP at 10/5. GENERAL: The patient is awake, alert, no apparent distress. HEENT: Normocephalic, atraumatic. Sclerae are white, conjunctivae pink. Oral and nasal mucosa is m oist without lesions. LUNGS: Excellent air entry. There is no prolonged expiratory phase or wheezing present. HEART: Normal rate, regular. ABDOMEN: Soft, nontender, nondistended. Bowel sounds are positive. MUSCULOSKELETAL: No cyanosis or clubbing. There is no pitting in the bilateral lower extremities. NEUROLOGIC: Grossly nonfocal except for diffuse weakness. LABORATORY: Basic metabolic profile is completely unremarkable. WBC 4.7. CBC is otherwise unremark able. ASSESSMENT: 1. Amyotrophic lateral sclerosis. 2. Chronic hypercapnic respiratory failure. PLAN: The patient is stable for transition home from my perspective. He would like to go home under the care of Hospice of that he can have some resources available to him. Because of how rapidly his disease has progressed over a period of 1 year, it is my suspicion that he has less than 6 months to live. Pulmonary Critical Care will continue to follow if he remains in this location, but my suspic ion is he will be going home today per his request.
--- NOTE | 2017-12-30 10:16 | PDOC.PN ---
- Subjective Encounter Start Date: 12/30/17 Encounter Start Time: 11:30 Subjective: Patient ok this AM. Ready to go home on hospice. A bit agitated after -: talking to his daughter on the phone. Would like to try a low dose -: Ativan and see if it helps. - Objective Resuscitation Status: Resuscitation Status DNR:Do Not Resuscitate MAR Reviewed: Yes Vital Signs & Weight: Vital Signs (12 hours) Temp Pulse Resp BP Pulse Ox 12/30/17 08:00 97.2 F L 66 20 100 12/30/17 07:58 66 12/30/17 07:38 97.2 F L 66 20 125/63 100 12/30/17 04:00 100 12/30/17 00:44 67 18 100 12/30/17 00:00 98.5 F 74 16 137/73 100 Weight Weight 186 lb 4.8 oz I&O: 12/29/17 12/30/17 12/31/17 06:59 06:59 06:59 Intake Total 205 2150 720 Output Total 480 1885 300 Balance -275 265 420 Result Diagrams: 12/29/17 07:52 12/29/17 07:52 Phys Exam - Physical Examination Constitutional: NAD HEENT: moist MMs Respiratory: no wheezing, no rales, no rhonchi mild increased WOB Cardiovascular: RRR, no significant murmur Gastrointestinal: soft, positive bowel sounds Neurological: non-focal, moves all 4 limbs Psychiatric: normal affect, A&O x 3 Dx/Plan (1) Respiratory failure Code(s): J96.90 - RESPIRATORY FAILURE, UNSP, UNSP W HYPOXIA OR HYPERCAPNIA Status: Acute Comment: due to ALS (2) ALS (amyotrophic lateral sclerosis) Code(s): G12.21 - AMYOTROPHIC LATERAL SCLEROSIS Status: Chronic Comment: Rapidly progressive, less than 6 months to live (3) CAD (coronary artery disease) Code(s): I25.10 - ATHSCL HEART DISEASE OF [place] CORONARY ARTERY W/O ANG PCTRS Status: Chronic Qualifiers: (4) HTN (hypertension) Code(s): I10 - ESSENTIAL (PRIMARY) HYPERTENSION Status: Chronic Qualifiers: - Plan cont current plan of alf on hospice * . - Discharge Day Encounter end time: 11:45
[2017-12-30 10:57] VITALS: BP 116/87; TEMP 97.9
--- NOTE | 2018-01-21 20:41 | EKG ---
Test Reason : Blood Pressure : / mmHG Vent. Rate : 075 BPM Atrial Rate : 075 BPM P-R Int : 140 ms QRS Dur : 090 ms QT Int : 392 ms P-R-T Axes : 076 055 071 degrees QTc Int : 437 ms Normal sinus rhythm Normal ECG Confirmed by JEANNINE MAJOR ([id number]), assignment editor ZULEIKA PARHAM ([id number] on 01/21/2018 8:41:02 PM Referred By: Confirmed By:JEANNINE MAJOR
== END 2017-12-30 14:20 | disposition hospice, home (50) | DRG 189 ==
LOC: ERS 16:08 → IMCU/EMU 17:50
PROVIDERS: ADMIT Emergency Medicine; ATTEND Emergency Medicine
DX: J96.22 Acute and chronic respiratory failure with hypercapnia (principal); G12.21 Amyotrophic lateral sclerosis; I10 Essential (primary) hypertension; I25.10 Atherosclerotic heart disease of native coronary artery without angina pectoris; Z87.891 Personal history of nicotine dependence; Z66 Do not resuscitate
CPT/HCPCS: 36415; 71045; 80048; 80053; 82553; 83735; 83880; 84484; 85025; 87070; 87205; 93005; 94640; 94660; 94760; 96374; 96375; G8978-GP-CJ; G8979-GP-CI; G8987-GO-CJ; G8988-GO-CI; J1956; J2060; J2930

== ENCOUNTER 2018-01-06 10:54 | Emergency (ER) | payer MEDICARE ==
[2018-01-06 11:38] LABS: #Basophils 0.1 thou/uL (0.0-0.2); #Eosinphils 0.1 thou/uL (0.0-0.7); #Lymphocytes 0.9 thou/uL (1.20-3.40); #Monocytes 0.4 thou/uL (0.11-0.59); #Neutrophils 3.6 thou/uL (1.40-6.50); %Basophils 2.1 % (0.0-1.0); %Eosinophils 2.7 % (0.0-10.0); %Lymphocytes 17.8 % (21.0-51.0); %Monocytes 8.3 % (0.0-10.0); %Neutrophils 69.2 % (42.0-75.0); Hemoglobin 13.2 g/dL (14.0-18.0); Mean Corpuscular HGB CONC 30.8 g/dL (32.0-36.0); Mean Corpuscular Hemoglobin 29.8 pg (27.0-31.0); Mean Corpuscular Volume 96.9 fl (80.0-94.0); Mean Platelet Volume 8.1 fL (7.4-10.4); Platelet Count 208 thou/uL (130-400); RBC Distribution Width 12.3 % (11.5-14.5); Red Blood Cell (RBC) Count 4.41 mill/uL (4.70-6.10); White Blood Cell (WBC) Count 5.3 thou/uL (4.8-10.8)
--- NOTE | 2018-01-06 11:50 | RAD ---
AP VIEW CHEST: INDICATIONS: Shortness of breath. History of anxiety, COPD, ALS, and asthma. COMPARISON: 12/28/2017 IMPRESSION: No acute cardiopulmonary abnormality. No appreciable change from the comparison study. POS: [facility]ORA
[2018-01-06 12:08] LABS: Troponin I Less than 0.010 ng/mL (< 0.028)
[2018-01-06 12:09] LABS: ALT (SGPT) 30 U/L (8-55); AST (SGOT) 32 U/L (5-34); Albumin 3.5 g/dL (3.4-4.8); Alkaline Phosphatase 49 U/L (40-150); Anion Gap 14 mmol/L (10-20); BUN (Urea Nitrogen) 12 mg/dL (8.4-25.7); CK (CPK) 122 U/L (30-200); CKMB 7.3 ng/mL (0-6.6); Calc. Creatinine Clearance 0 mL/min (70-130); Calcium 9.1 mg/dL (7.8-10.44); Carbon Dioxide 32 mmol/L (23-31); Chloride 96 mmol/L (98-107); Estimated GFR-MDRD Greater than 90; Globulin 2.6 g/dL (2.4-3.5); Glucose 98 mg/dL (80-115); Potassium 4.8 mmol/L (3.5-5.1); Protein, Total 6.1 g/dL (5.8-8.1); Sodium 137 mmol/L (136-145)
== END 2018-01-06 12:48 | disposition home or self-care (01) ==
LOC: ERS 10:54
DX: R06.02 Shortness of breath (principal); I10 Essential (primary) hypertension; J44.9 Chronic obstructive pulmonary disease, unspecified; Z79.891 Long term (current) use of opiate analgesic; Z79.899 Other long term (current) drug therapy
CPT/HCPCS: 71045; 80053; 82550; 82553; 83880; 84484; 85025; 93005